=== PATIENT | female | born 1975 | race Hispanic/Latino ===

== ENCOUNTER 2017-12-08 18:48 | Emergency (ER) | payer OTHER ==
[~2017-12-08] VITALS: Wt 90.3 kg
[~2017-12-08 18:48] MED LIST: AZITHROMYCIN250 MG PO; CYCLOBENZAPRINE10 MG PO; DEPRESSION MED; DIPHENHYDRAMINE25 M1 PO; LISINOPRIL-HCT1 EAC2 PO; NORCO 5-325 TA1 EACH PO; PEPCID20 MG PO; TRAMADOL HCL50 MG PO
[2017-12-08] MEDS ORDERED: ACETAMINOPHEN-1 EAC1 PO (22:45)
[2017-12-08] MEDS ORDERED: CRUTCH1 EACH MISC (22:46)
== END 2017-12-08 23:09 | disposition home or self-care (01) ==
LOC: ED 18:48
DX: S93.401A Sprain of unspecified ligament of right ankle, initial encounter (principal); I10 Essential (primary) hypertension; Z79.899 Other long term (current) drug therapy; W07.XXXA Fall from chair, initial encounter
CPT/HCPCS: 73590; 73610; 99283

== ENCOUNTER 2019-09-23 14:11 | Emergency (ER) | payer OTHER ==
[~2019-09-23] VITALS: Ht 170.2 cm; Wt 95.2 kg
--- OUTSIDE RECORDS SUMMARY | ~2019-09-23 | XMS | Clinical Summary ---
Demographics + + + | Address | [address] | | | [place] [address] | + + + | Home Phone | | + + + | Preferred Language | Unknown | + + + | Marital Status | | + + + | Orthodox Affiliation | 1001 | + + + | Race | Unknown | + + + | Ethnic Group | Unknown | + + + Author + + + | Author | [facility] | | | and [place] | + + + | Organization | [facility] | | | and [place] | + + + | Address | Unknown | + + + | Phone | Unavailable | + + + Support + + + + + | Name | Relationship | Address | Phone | + + + + + | Louis Lees | ECON | [address] | | | | | [address] unit | | | | | [facility] [place] | | | | | [address] | | + + + + + Care Team Providers + +------+ + | Care Machine Container Washer Name | Role | Phone | + +------+ + | Eden Borden RN | PCP | | + +------+ + Allergies No Known Allergies Medications + + + +---------+------+------+-------+ | Medication | Sig | Dispensed | Refills | Star | End | Statu | | | | | | t | Date | s | | | | | | Date | | | + + + +---------+------+------+-------+ | ranitidine | Take 150 mg by mouth | | 0 | | | Activ | | (ZANTAC) 150 mg | 2 times daily. | | | | | e | | tablet | | | | | | | + + + +---------+------+------+-------+ | esomeprazole | Take 20 mg by mouth | | 0 | | | Activ | | (NEXIUM) 20 mg | Daily. | | | | | e | | packet | | | | | | | + + + +---------+------+------+-------+ | lisinopril | Take 30 mg by mouth | | 0 | | | Activ | | (PRINIVIL,ZESTRIL) | Daily. | | | | | e | | 30 MG tablet | | | | | | | + + + +---------+------+------+-------+ | baclofen | Take 10 mg by mouth | | 0 | | | Activ | | (LIORESAL) 10 mg | 2 times daily. | | | | | e | | tablet | | | | | | | + + + +---------+------+------+-------+ | atenolol | Take 50 mg by mouth | | 0 | | | Activ | | (TENORMIN) 50 mg | Daily. 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 | + + + + + | Abdominal pain, left upper quadrant | 01/15/2016 | + + + | Nausea | 01/15/2016 | + + + | Abdominal pain, epigastric | 01/15/2016 | + + + Family History + + +------+ + | Medical History | Relation | Name | Comments | + + +------+ + | High blood pressure | Father | | | + + +------+ + | Cancer | Maternal | | | | | Grandmoth | | | | | er | | | + + +------+ + | High blood pressure | Mother | | | + + +------+ + | Diabetes | | | | + + +------+ + | Hypertension | | | | + + +------+ + + +------+--------+ + | Relation | Name | Status | Comments | + +------+--------+ + | Father | | Alive | tumor in chest | + +------+--------+ + | Maternal Grandmother | | | | + +------+--------+ + | Mother | | Alive | epilepsy | + +------+--------+ + Social History + +-------+ +--------+------+ | Tobacco Use | Types | Packs/Day | Years | Date | | | | | Used | | + +-------+ +--------+------+ | Never Smoker | | | | | + +-------+ +--------+------+ + +---+---+---+ | Smokeless Tobacco: | | | | | Never Used | | | | + +---+---+---+ + + +---------+ + | Alcohol Use | Drinks/Week | oz/Week | Comments | + + +---------+ + | No | 0 Standard drinks | 0.0 | | | | or equivalent | | | + + +---------+ + + + + | Sex Assigned at | Date Recorded | | | | + + + | Not on file | | + + + + + + + | Job Start Date | Occupation | Industry | + + + + | Not on file | Not on file | Not on file | + + + + + + + + | Travel History | Travel Start | Travel End | + + + + + + | No recent travel history available. | + + Last Filed Vital Signs + + + + + | Vital Sign | Reading | Time Taken | Comments | + + + + + | Blood Pressure | 109/58 | 02/09/2016 10:00 AM | | | | | PDT | | + + + + + | Pulse | 52 | 02/09/2016 10:00 AM | | | | | PDT | | + + + + + | Temperature | 36.4 C (97.5 F) | 02/09/2016 8:00 AM | | | | | PDT | | + + + + + | Respiratory Rate | 14 | 02/09/2016 9:37 AM | | | | | PDT | | + + + + + | Oxygen Saturation | 96% | 02/09/2016 10:00 AM | | | | | PDT | | + + + + + | Inhaled Oxygen | - | - | | | Concentration | | | | + + + + + | Weight | 90.7 kg (200 lb) | 02/09/2016 8:00 AM | | | | | PDT | | + + + + + | Height | 170.2 cm (5' 7") | 02/09/2016 8:00 AM | | | | | PDT | | + + + + + | Body Mass Index | 31.32 | 02/09/2016 8:00 AM | | | | | PDT | | + + + + + Plan of Treatment + + + + + | Health Maintenance | Due Date | Last Done | Comments | + + + + + | Vaccine: | | | | | Dtap/Tdap/Td (1 - | 5 | | | | Tdap) | | | | + + + + + | Cervical Cancer | | | | | Screening (Pap) | 6 | | | + + + + + | Vaccine: Influenza | | | | | (#1) | 9 | | | + + + + + Results Not on filefrom Last 3 Months Insurance + +--------+ +--------+ +---------+--------+ | Payer | Benefi | Subscriber | Effect | Phone | Address | Type | | | t Plan | ID | christian | | | | | | / | | Dates | | | | | | Group | | | | | | + +--------+ +--------+ +---------+--------+ | [employer] | MODA | [id number] | | [phone] | | Medica | | MEDICAID HMO | HEALTH | | 016-Pr | 1 | | id | | | MDCD | | esent | | | | | | [place]MO [place] | | | | | | + +--------+ +--------+ +---------+--------+ | [employer] | MODA | [id number] | 08/05/ | [phone] | | Medica | | MEDICAID HMO | HEALTH | | 2019-P | 1 | | id | | | MDCD | | resent | | | | | | [place]MO [place] | | | | | | + +--------+ +--------+ +---------+--------+ + +--------+ +--------+ + + | Guarantor Name | Accoun | Relation to | Date | Phone | Billing Address | | | t Type | Patient | of | | | | | | | | | | + +--------+ +--------+ + + | Lees | Person | Self | [birth year] | | [address] | | Anahi Masters | al/Vamshi | | 1975 | [phone] | [place] [address] | | Gisela | brent | | | 4 (Home) | | + +--------+ +--------+ + + | Lees | Person | Self | [birth year] | | [address] | | Anahi Masters | al/Vamshi | | 1975 | [phone] | [place] [address] | | Gisela | brent | | | 4 (Home) | | + +--------+ +--------+ + + Advance Directives + + + + + | Type | Date Recorded | Patient | Explanation | | | | Rougher Machine Operator | | + + + + + | Power of | | | | | Sports Cartoonist | | | | + + + + + | Advance | 02/09/2016 7:45 | | | | Directive | AM | | | + + + + +
--- OUTSIDE RECORDS SUMMARY | ~2019-09-23 | XMS | Encounter Summary ---
Demographics + + + | Address | [address] | | | [place] [address] | + + + | Home Phone | | + + + | Preferred Language | Unknown | + + + | Marital Status | | + + + | Mandaeism Affiliation | 1001 | + + + | Race | Unknown | + + + | Ethnic Group | Unknown | + + + Author + + + | Author | [facility] | | | and [place] | + + + | Organization | [facility] | | | and [place] [...] [address] | | | | | [place], [place] | | | | | [address] | | + + + + + Care Team Providers + +------+ + | Care Dray Driver Name | Role | Phone | + +------+ + | Eden Borden RN | PCP | | + +------+ + Reason for Referral Evaluate & Treat (Routine) +--------+ + + + + + | Status | Reason | Specialty | Diagnoses / | Referred By | Referred To | | | | | Procedures | Contact | Contact | +--------+ + + + + + | Closed | Specialty | Gastroenterol | Diagnoses | | Ruth Ann, | | | Services | ogy | | Gael, | MD Alfred | | | Required | | Gastroesopha | Krys, | [address] | | | | | geal reflux | LEAD MAN OVER ALL DIES IN PATTERN 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 [address] | [place], | | | | | disease, | [place], [place] | [place] [address] | | | | | esophagitis | [address] [place] | Phone: | | | | | presence not | [place], [place] | [phone] | | | | | specified | [address] | Fax: | | | | | Dysphagia, | Phone: | [phone] | | | | | unspecified | [phone] | | | | | | dysphagia | Fax: | | | | | | Abdominal | [phone] | | | | | | pain, left | | | | | | | upper | | | | | | | quadrant | | | | | | | Nausea | | | | | | | Procedures | | | | | | | [place] | | | | | | | ESOPHAGOGAST | | | | | | | RODUODENOSCO | | | | | | | PY TRANSORAL | | | | | | | DIAGNOSTIC | | | | | | | [place] EDG | | | | | | | TRANSORAL | | | | | | | BIOPSY | | | | | | | SINGLE/MULTI | | | | | | | PLE 01/30 | | | | | | | PENDING-MODA | | | | | | | IPA | | | | | | | RESPONSE | | | +--------+ + + + + + Reason for Visit + + + | Reason | Comments | + + + | Gastroesophageal | | | Reflux | | + + + Evaluate & Treat (Routine) +--------+--------+ + + + + | Status | Reason | Specialty | Diagnoses / | Referred By | Referred To | | | | | Procedures | Contact | Contact | +--------+--------+ + + + + | Closed | | Gastroenterol | Diagnoses | Unknown, | [facility] | | | | ogy | | Doctor | Gastroenterol | | | | | Gastro-esoph | Phone: | ogy [address] | | | | | ageal reflux | | [address] [place] | | | | | disease | Fax: | [address] [place] | | | | | without | | [place], [place] | | | | | esophagitis | | [address] | | | | | Procedures | | Phone: | | | | | OFFICE | | [phone] | | | | | VISIT | | Fax: | | | | | | | [phone] | +--------+--------+ + + + + Encounter Details +--------+---------+ + + + | Date | Type | Department | Care Team | Description | +--------+---------+ + + + | 01/08/ | Office | [facility] [place] | [facility], | Gastroesophageal | | 2015 | Visit | GASTROENTEROLOGY | FILEMON Marcano [address] | reflux disease, | | | | [address] [place] | [place], [place] [address] | esophagitis presence | | | | [address] [place], [place] | [place], [place] | not specified | | | | [address] | [phone] | (Primary Dx); | | | | [phone] | | Dysphagia, | | | | | | unspecified | | | | | | dysphagia; Abdominal | | | | | | pain, left upper | | | | | | quadrant; Nausea; | | | | | | Epigastric pain; | | | | | | Gastroesophageal | | | | | | reflux disease | | | | | | without esophagitis | +--------+---------+ + + + Social History + +-------+ +--------+------+ | [...] recent travel history available. | + + documented as of this encounter Last Filed Vital Signs + + + + + | Vital Sign | Reading | Time Taken | Comments | + + + + + | Blood Pressure | 120/70 | 01/09/2016 9:55 AM | | | | | PDT | | + + + + + | Pulse | 91 | 01/09/2016 9:55 AM | | | | | PDT | | + + + + + | Temperature | 36.6 C (97.9 F) | 01/09/2016 9:55 AM | | | | | PDT | | + + + + + | Respiratory Rate | 16 | 01/09/2016 9:55 AM | | | | | PDT | | + + + + + | Oxygen Saturation | 96% | 01/09/2016 9:55 AM | | | | | PDT | | + + + + + | Inhaled Oxygen | - | - | | | Concentration | | | | + + + + + | Weight | 90.7 kg (200 lb) | 01/09/2016 9:55 AM | | | | | PDT | | + + + + + | Height | 170.2 cm (5' 7") | 01/09/2016 9:55 AM | | | | | PDT | | + + + + + | Body Mass Index | 31.32 | 01/09/2016 9:55 AM | | | | | PDT | | + + + + + documented in this encounter Progress Notes Harriet Vincent RN - 01/09/2016 5:14 PM PDTScheduled for egd with IVCS on 02/[address] [facility] [address] Greenberg. Patient is Mongolian-speaking only.Electronically signed by HOMERO Hernandez 01/11/2016 4:45 PM PDTKrys Mayo LEAD MAN OVER ALL DIES IN PATTERN SHOP - 01/09/2016 10:41 AM PDTFormatting of th is note might be different from the original. Anahi Masters is a 40 y.o. female referred by Eden Ahumada RN for evalua tion and treatment of GERD and abdominal pain. History of present illness: Patient notes that starting 09/2015, she developed strong pain in stomach and back that bro ught her to ER. [place] shortness of breath with pain. When pain started she was having trouble with headaches. Was taking 2-3 pills of tylenol da brent. She was found to have high blood pressure. Was advised that she had an ulcer and was given antibiotics for infection in her stomach. The medication seemed to help the abdominal pain a bit. Pain continued to be intermittent. She has been on amoxicillin and clarithromycin toge ther for the past 3 weeks. Pain continues in left upper side and straight through to left side of back. Pain is worse with taking a deep breath of movement. She was told to avoid greasy or spicy foods. If she e ats this, it does seem to worsen some. Pain is there despite Nexium. Records indicate she wa s treated with amoxicillin and clarithromycin. Pain is intermittent. Describes discomfort as a mixture of burning stabbing pain. Pain come s daily. Worse with moving or touching. Complains of nausea is most of the day. Vomiting can come 1-2 times per day. Notes dysphagia. Dysphagia comes with food. Denies dysphagia with liquids. Dysphagia is wor se with tortilla, wheat bread, or dry foods. Notes that stool and urine are dark. Chin Strap Cutter phone used. No Known Allergies Past Medical History Diagnosis Date Depression HTN (hypertension) Abdominal pain GERD (gastroesophageal reflux disease) Chest pain Peptic ulcer disease Past Surgical History Procedure Laterality Date section, classic Family History Problem Relation Age of Onset Hypertension Diabetes High blood pressure Mother High blood pressure Father Cancer Maternal Grandmother History Social History Marital Status: Spouse Name: N/A Number of Children: N/A Years of Education: N/A Occupational History Not on file. Social History Main Topics Smoking status: Never Smoker Smokeless tobacco: Never Used Alcohol Use: No Drug Use: No Sexual Activity: Not on file Other Topics Concern Not on file Social History Narrative Review of systems: Constitutional:Denies any fevers, chills, or unintentional weight loss. Eyes:Denies using glaucoma eye drops. Denies dry, burning, painful eyes Respiratory:Denies shortness of breath, cough or wheezing. Gastrointestinal:Complains of heartburn. Denies constipation, diarrhea, bloody or black sto ols, hematemesis, nausea or vomiting, hemorrhoids, or dysphagia Skin: Denies rashes Neurological:Denies memory difficulties, numbness or tingling, muscle weakness, paralysis o f arms or legs, epilepsy or seizure, or frequent bothersome and headaches. ENT: Denies hearing loss, hearing aids, hearing ringing or buzzing in ears, constantly runn y nose, nasal obstruction, hayfever, dentures, or hoarseness. Cardiovascular:Denies chest pain, palpitations, or swelling to legs :Denies painful urination, urine incontinence, waking up on average more than once per ni ght to urinate, bloody urine, or impotence Musculoskeletal:Denies swollen joints, painful back, or painful joints. Psychiatric:Denies depression and anxiety Endocrine:Denies enlarged thyroid Heme/lymph:Denies anemia or enlarged lymph glands. Physical exam: General: well developed, well nourished, in no acute distress. Head: normocephalic and atraumatic Eyes: Sclera clear Mouth: MMM Lungs: Clear to auscultate bilaterally and throughout Heart: regular rate and rhythm Abdomen: Soft, non tender, non distended, bowel tones positive times 4 quadrants, negative Teodoro y's sign, negative rebound tenderness, no guarding, no hepatosplenomegaly palpated. Msk: symmetrical with no deformity, with normal posture and gait, normal strength. Extremities: no clubbing, cyanosis, edema, or deformity noted Neurologic: no focal deficits, cranial nerves II-XII grossly intact Skin: intact without lesions or rashes. Psych: alert and cooperative; normal mood and affect; normal attention span and concentration. Abstract on 01/05/2016 Component Date Value Ref Range Status Creatinine, External 12/21/2015 0.75 0.6 - 1.35 Final eGFR, External 12/21/2015 86 Final Cholesterol, Total, External 12/21/2015 170 200 mg/dl Final HDL Cholesterol, External 12/21/2015 39.8* 40 mg/dl Final Triglycerides, External 12/21/2015 173* 30 - 150 Final WBC, External 12/21/2015 5.4 4.5 - 11 Final HGB, External 12/21/2015 12.6 12 - 16 Final HCT, External 12/21/2015 36.5 35 - 45 Final PLT, External 12/21/2015 272 140 - 440 Final Neutrophils %, External 12/21/2015 60.6 39 - 80 Final Lymphocytes %, External 12/21/2015 27.6 24 - 44 Final Monocytes %, External 12/21/2015 7.1 0 - 12 Final Eosinophils %, External 12/21/2015 4.4 0 - 6 Final RBC, External 12/21/2015 4.03 3.8 - 5.1 Final MCV, External 12/21/2015 91 81 - 99 Final RDW, External 12/21/2015 13.7 10.5 - 15 Final Sodium, External 12/21/2015 138 132 - 143 Final Potassium, External 12/21/2015 3.6 3.6 - 5.1 Final Chloride, External 12/21/2015 103 95 - 112 Final Carbon Dioxide, External 12/21/2015 24 19 - 31 Final Calcium, External 12/21/2015 9.4 8.4 - 10.2 Final Protein, Total, External 12/21/2015 6.9 6 - 8 Final Albumin, External 12/21/2015 4.6 3.5 - 5 Final Bilirubin, Total, External 12/21/2015 0.5 0 - 1.2 Final ALP, External 12/21/2015 54 30 - 128 Final AST, External 12/21/2015 17 13 - 39 Final ALT, External 12/21/2015 21 7 - 52 Final Amylase, Serum, External 12/21/2015 49 29 - 103 Final Troponin T, External 12/21/2015 0.010 0.01 Final CKMB, Total, External 12/21/2015 negative Corrected Glucose, External 12/21/2015 91 70 - 100 Final BUN, External 12/21/2015 14 6 - 23 Final VLDL Cholesterol Erasmo 12/21/2015 35 Final Chol/HDL Ratio 12/21/2015 4.3 Final Non HDL Chol. (LDL+VLDL) 12/21/2015 130 Final ANION GAP 12/21/2015 15 Final Bun/Creatinine 12/21/2015 18.7 Final Globulin 12/21/2015 2.3 Final Albumin/Globulin Ratio 12/21/2015 2.0 Final Myoglobin 12/21/2015 24.41* 25 - 58 ng/mL Final Relative Index 12/21/2015 1.7 Final D-DIMER, QUANTITATIVE 12/21/2015 176.0 230.0 FEU ng/mL Final CK-MB 12/21/2015 1.7 Final H PYLORI IGG 12/21/2015 Positive Final MCH 12/21/2015 31.0 26.0 - 33.0 pg Final MCHC 12/21/2015 35.0 30.0 - 36.0 % Final BASOPHILS % 12/21/2015 0.3 1.0 % Final Assessment: 1. Gastroesophageal reflux disease, esophagitis presence not specified Ambulatory referral to Gastroenterology ([facility]) 2. Dysphagia, unspecified dysphagia Ambulatory referral to Gastroenterology ([facility]) 3. Abdominal pain, left upper quadrant Ambulatory referral to Gastroenterology ([facility]) 4. Nausea Ambulatory referral to Gastroenterology ([facility]) 5. Epigastric pain 6. Gastroesophageal reflux disease without esophagitis Plan: Patient to have EGD for further evaluation.The procedural techniques, risks, indications, a nd alternatives were discussed. Among the risks, are perforation, bleeding, infection, michael rgic/adverse reactions to medications, and cardiovascular complications. Each of these coul d result in hospitalization, additional procedures (including surgery), or other life threat ening complications. Patient verbalized understanding.Patient to call with any questions or concerns prior to procedure. Continue with Nexium daily. She is to stop antibiotics. She has been taking amoxicillin and clarithromycin for 3 weeks now without relief. Will follow up with results. Patient is to call with any question or concerns. Any fevers, chills, chest pain, SOB or other serious symptoms patient is to call the office or go to ER . Cc: Eden Ahumada RN This note was dictated using voice recognition software. Please contact me if there are an y questions regarding its content. documented in t his encounter Plan of Treatment + + +--------+ + + | Name | Type | Priori | Associated Diagnoses | Order Schedule | | | | ty | | | + + +--------+ + + | Ambulatory referral | Outpatient | Routin | Gastroesophageal | Expected: 02/09/2016 | | to Gastroenterology | Referral | e | reflux disease, | (Approximate), | | ([facility]) | | | esophagitis presence | Expires: 01/08/2017 | | | | | not specified | | | | | | Dysphagia Abdominal | | | | | | pain, left upper | | | | | | quadrant Nausea | | + + +--------+ + + documented as of this encounter Visit Diagnoses + + | Diagnosis | + + | Gastroesophageal reflux disease, esophagitis presence not specified - Primary | + + | Dysphagia, unspecified dysphagia | + + | Abdominal pain, left upper quadrant | + + | Nausea Nausea alone | + + | Epigastric pain Abdominal pain, epigastric | + + | Gastroesophageal reflux disease without esophagitis Esophageal reflux | + + documented in this encounter
--- OUTSIDE RECORDS SUMMARY | ~2019-09-23 | XMS | Encounter Summary ---
Demographics + + + | Address | [address] | | | [place] [address] | + + + | Home Phone | | + + + | Preferred Language | Unknown | + + + | Marital Status | | + + + | Orthodoxy Affiliation | 1001 | + + + | Race | Unknown | + + + | Ethnic Group | Unknown | + + + Author + + + | Author | [facility] | | | and [place] | + + + | Organization | [facility] | | | and [place] [...] [place], [place] | | | | | [address] | | + + + + + Care Team Providers + +------+ + | Care Air Transport Professionals Name | Role | Phone | + [...] | | | | geal reflux | GANG DRILL PRESS OPERATOR [address] | [place], | | | | | disease, | [place], [place] | [place] [address] | | | | | esophagitis | [address] [place] | Phone: | | | | | presence not | [place], [place] | [phone] | | | | | specified | [address] | Fax: | | | | | Dysphagia, | Phone: | [phone] | | | | | unspecified | [phone] | | | | | | dysphagia | Fax: | | | | | | Abdominal | [phone] | | | | | | pain, left | | | | | | | upper | | | | | | | quadrant | | | | | | | Nausea | | | | | | | Procedures | | | | | | | [place] | | | | | | | ESOPHAGOGAST | | | | | | | RODUODENOSCO | | | | | | | PY TRANSORAL | | | | | | | DIAGNOSTIC | | | | | | | [place] EDG | | | | | | [...] | | | | esophagitis | | [address] | | | | | Procedures | | Phone: | | | | | OFFICE | | [phone] | | | | | VISIT | | Fax: | | | | | | | [phone] | +--------+--------+ + + + + Encounter Details +--------+---------+ + + + | Date | Type | Department | Care Team | Description | +--------+---------+ + + + | 01/08/ | Office | [facility] [place] | [facility] | Gastroesophageal | | 2015 | Visit | GASTROENTEROLOGY | FILEMON Marcano [address] | reflux disease, | | | | [address] [place] | [place], [place] [address] | esophagitis presence | | | | [address] [place], [place] | [place], [place] | not specified | | | | [address] | [id number] | (Primary Dx); | | | | [phone] | | Dysphagia, | | | | [...] with IVCS on 02/[address] [facility] [address] Greenberg. Patient is English-speaking only.Electronically signed by HOMERO Hernandez 01/11/2016 4:45 PM PDTKrys Mayo GANG DRILL PRESS OPERATOR - 01/09/2016 10:41 AM PDTFormatting of th is note might be different from the original. Anahi Masters is a 40 y.o. female referred by Eden Ahumada RN for evalua tion and treatment of GERD and abdominal pain. History of present illness: Patient notes that starting 09/2015, she developed strong pain in stomach and back that bro ught her to ER. [place] shortness of breath with pain. When pain [...] Notes that stool and urine are dark. Gallery Manager phone used. No Known Allergies Past Medical [...] presence not specified Ambulatory referral to Gastroenterology ([facility]) 2. Dysphagia, unspecified dysphagia Ambulatory referral to Gastroenterology ([facility]) 3. Abdominal pain, left upper quadrant Ambulatory referral to Gastroenterology ([facility]) 4. Nausea Ambulatory referral to Gastroenterology ([facility]) 5. Epigastric pain 6. Gastroesophageal [...]
--- OUTSIDE RECORDS SUMMARY | ~2019-09-23 | XMS | Encounter Summary ---
Demographics + + + | Address | [address] | | | [place] [address] | + + + | Home Phone | | + + + | Preferred Language | Unknown | + + + | Marital Status | | + + + | Yarsanism Affiliation | 1001 | + + + | Race | Unknown | + + + | Ethnic Group | Unknown | + + + Author + + + | Author | [facility] | | | and [place] | + + + | Organization | [facility] | | | and [place] | [...] [address] | | | | | [facility] [place] | | | | | [address] | | + + + + + Care Team Providers + +------+ + | Care Application Developer Name | Role | Phone | + +------+ + | Eden Borden RN | PCP | | + +------+ + Reason for Visit +---------+ + | Reason | Comments | +---------+ + | Results | | +---------+ + Encounter Details +--------+ + + + + | Date | Type | Department | Care Team | Description | +--------+ + + + + | 05/05/ | Telephone | [facility] | Alfred Greenberg MD | Results | | 2016 | | GASTROENTEROLOGY | [address] [facility] | | | | | [address] [facility] | [place], [place] | | | | | [address] [place] | [address] | | | | | [address] | [phone] | | | | | [phone] | | | +--------+ + + + + Social History + +-------+ [...] + + documented as of this encounter Plan of Treatment Not on filedocumented as of this encounter Visit Diagnoses Not on filedocumented in this encounter"
--- OUTSIDE RECORDS SUMMARY | ~2019-09-23 | XMS | Encounter Summary ---
Demographics + + + | Address | [address] | | | [place] [address] | + + + | Home Phone | | + + + | Preferred Language | Unknown | + + + | Marital Status | | + + + | Rastafarian Affiliation | 1001 | + + + | Race | Unknown | + + + | Ethnic Group | Unknown | + + + Author + + + | Author | [facility] | | | and [place] | + + + | Organization | [facility] | | | and [place] [...] [address] | | | | | [facility] [place] | | | | | [address] | | + + + + + Care Team Providers + +------+ + | Care Care Taker Name | Role | Phone | + +------+ + | Eden Borden RN | PCP | | + +------+ + Encounter Details +--------+ + + + + | Date | Type | Department | Care Team | Description | +--------+ + + + + | 01/04/ | Abstract | [facility] | Gael, | | | 2015 | | GASTROENTEROLOGY | [address] | | | | | [address] [place] | [place] | | | | | [address] [place], [place] | [place], [place] | | | | | [address] | [address] | | | | | [phone] | | | +--------+ + + + + Social History + +-------+ +--------+------+ | Tobacco Use | Types | Packs/Day | Years | Date | | | | | Used | | + +-------+ +--------+------+ | Never Smoker | | | | | + +-------+ +--------+------+ + + +---------+ + | Alcohol Use [...] Not on filedocumented as of this encounter Procedures + +--------+ + + + | Procedure Name | Priori | Date/Time | Associated Diagnosis | Comments | | | ty | | | | + +--------+ + + + | EXTERNAL LAB: FREDDY | Routin | 12/21/2015 | | Results for this | | | e | | | procedure are in the | | | | | | results section. | + +--------+ + + + | EXTERNAL LAB: | Routin | 12/21/2015 | | Results for this | | GLUCOSE | e | | | procedure are in the | | | | | | results section. | + +--------+ + + + | EXTERNAL LAB: CKMB | Routin | 12/21/2015 | | Results for this | | | e | | | procedure are in the | | | | | | results section. | + +--------+ + + + | EXTERNAL LAB: | Routin | 12/21/2015 | | Results for this | | TROPONIN T | e | | | procedure are in the | | | | | | results section. | + +--------+ + + + | EXTERNAL LAB: | Routin | 12/21/2015 | | Results for this | | AMYLASE, SERUM | e | | | procedure are in the | | | | | | results section. | + +--------+ + + + | EXTERNAL LAB: ALT | Routin | 12/21/2015 | | Results for this | | | e | | | procedure are in the | | | | | | results section. | + +--------+ + + + | EXTERNAL LAB: AST | Routin | 12/21/2015 | | Results for this | | | e | | | procedure are in the | | | | | | results section. | + +--------+ + + + | EXTERNAL LAB: | Routin | 12/21/2015 | | Results for this | | ALKALINE PHOSPHATASE | e | | | procedure are in the | | | | | | results section. | + +--------+ + + + | EXTERNAL LAB: | Routin | 12/21/2015 | | Results for this | | BILIRUBIN, TOTAL | e | | | procedure are in the | | | | | | results section. | + +--------+ + + + | EXTERNAL LAB: | Routin | 12/21/2015 | | Results for this | | ALBUMIN | e | | | procedure are in the | | | | | | results section. | + +--------+ + + + | EXTERNAL LAB: | Routin | 12/21/2015 | | Results for this | | PROTEIN, TOTAL | e | | | procedure are in the | | | | | | results section. | + +--------+ + + + | EXTERNAL LAB: | Routin | 12/21/2015 | | Results for this | | CALCIUM | e | | | procedure are in the | | | | | | results section. | + +--------+ + + + | EXTERNAL LAB: CARBON | Routin | 12/21/2015 | | Results for this | | DIOXIDE | e | | | procedure are in the | | | | | | results section. | + +--------+ + + + | EXTERNAL LAB: | Routin | 12/21/2015 | | Results for this | | CHLORIDE | e | | | procedure are in the | | | | | | results section. | + +--------+ + + + | EXTERNAL LAB: | Routin | 12/21/2015 | | Results for this | | POTASSIUM | e | | | procedure are in the | | | | | | results section. | + +--------+ + + + | EXTERNAL LAB: SODIUM | Routin | 12/21/2015 | | Results for this | | | e | | | procedure are in the | | | | | | results section. | + +--------+ + + + | EXTERNAL LAB: CBC | Routin | 12/21/2015 | | Results for this | | | e | | | procedure are in the | | | | | | results section. | + +--------+ + + + | EXTERNAL LAB: | Routin | 12/21/2015 | | Results for this | | TRIGLYCERIDES | e | | | procedure are in the | | | | | | results section. | + +--------+ + + + | EXTERNAL LAB: | Routin | 12/21/2015 | | Results for this | | CHOLESTEROL, HDL | e | | | procedure are in the | | | | | | results section. | + +--------+ + + + | EXTERNAL LAB: | Routin | 12/21/2015 | | Results for this | | CHOLESTEROL, TOTAL | e | | | procedure are in the | | | | | | results section. | + +--------+ + + + | EXTERNAL LAB: EGFR | Routin | 12/21/2015 | | Results for this | | | e | | | procedure are in the | | | | | | results section. | + +--------+ + + + | EXTERNAL LAB: | Routin | 12/21/2015 | | Results for this | | CREATININE | e | | | procedure are in the | | | | | | results section. | + +--------+ + + + | H. PYLORI ANTIBODY | Routin | 12/21/2015 | | Results for this | | SCREEN | e | | | procedure are in the | | | | | | results section. | + +--------+ + + + | RULE OUT MYOCARDIAL | Routin | 12/21/2015 | | Results for this | | INFARCTION | e | | | procedure are in the | | | | | | results section. | + +--------+ + + + | LIPID PANEL | Routin | 12/21/2015 | | Results for this | | | e | | | procedure are in the | | | | | | results section. | + +--------+ + + + | CBC WITH | Routin | 12/21/2015 | | Results for this | | DIFFERENTIAL | e | | | procedure are in the | | | | | | results section. | + +--------+ + + + | COMPREHENSIVE | Routin | 12/21/2015 | | Results for this | | METABOLIC PANEL | e | | | procedure are in the | | | | | | results section. | + +--------+ + + + documented in this encounter Results CBC with Differential (12/21/2015) + +-------+ + + + | Component | Value | Ref Range | Performed | Pathologist | | | | | At | Signature | + +-------+ + + + | MCH | 31.0 | 26.0 - 33.0 pg | | | + +-------+ + + + | MCHC | 35.0 | 30.0 - 36.0 % | | | + +-------+ + + + | % Basophils | 0.3 | 1.0 % | | | + +-------+ + + + + + | Specimen | + + | Blood specimen | | (specimen) | + + H. pylori Antibody Screen (12/21/2015) + + + + + + | Component | Value | Ref Range | Performed | Pathologist | | | | | At | Signature | + + + + + + | H PYLORI | Positive | | [facility] | | | [facility] | | | [facility] | | | | | | [facility] | | | | | | [facility] - | | | | | | LABORATORY | | + + + + + + + + | Specimen | + + | Blood specimen | | (specimen) | + + + + + + + | Performing | Address | City/State/[facility] | Phone Number | | Organization | | | | + + + + + | [facility] | [address] | [place] | [phone] | | [facility] | | [address] | | | - LABORATORY | | | | + + + + + Rule Out Myocardial (12/21/2015) + + + + + + | Component | Value | Ref Range | Performed | Pathologist | | | | | At | Signature | + + + + + + | Myoglobin | 24.41 (A) | 25 - 58 ng/mL | [facility] | | | | | | [facility] | | | | | | [facility]ICAL | | | | | | CENTER - | | | | | | LABORATORY | | + + + + + + | CK Index | 1.7 | | [facility] | | | | | | [facility] | | | | | | MEDICAL | | | | | | CENTER - | | | | | | LABORATORY | | + + + + + + | D-DIMER, | 176.0 | 230.0 FEU ng/mL | [facility] | | | [facility] | | | [facility] | | | E | | | MEDICAL | | | | | | CENTER - | | | | | | LABORATORY | | + + + + + + | CK-MB | 1.7 | ng/mL | [facility] | | | [facility] | [facility] | | | | | | [facility] | | | | | | C[facility] - | | | | | | LABORATORY | | + + + + + + + + | Specimen | + + | | + + + + + + + | Performing | Address | City/State/Zipcode | Phone Number | | Organization | | | | + + + + + | [facility] | [address] | [place] | [phone] | | [facility] | | [address] | | | - LABORATORY | | | | + + + + + Comprehensive Metabolic Panel (12/21/2015) + +-------+ + + + | Component | Value | Ref Range | Performed | Pathologist | | | | | At | Signature | + +-------+ + + + | Anion Gap | 15 | mmol/L | [facility] | | | | | | [facility] | | | | | | MEDICAL | | | | | | CENTER - | | | | | | LABORATORY | | + +-------+ + + + | Bun/Creatin | 18.7 | | [facility] | | | ine | | | [facility] | | | | | | MEDICAL | | | | | | CENTER - | | | | | | LABORATORY | | + +-------+ + + + | Globulin | 2.3 | | [facility] | | | | | | [facility] | | | | | | MEDICAL | | | | | | CENTER - | | | | | | LABORATORY | | + +-------+ + + + | Albumin/Ansley | 2.0 | | [facility] | | | bulin Ratio | | | [facility] | | | | | | MEDICAL | | | | | | CENTER - | | | | | | LABORATORY | | + +-------+ + + + + + | Specimen | + + | Blood specimen | | (specimen) | + + + + + + + | Performing | Address | City/State/Zipcode | Phone Number | | Organization | | | | + + + + + | [facility] | [address] | [place] | [phone] | | [facility] | | [address] | | | - LABORATORY | | | | + + + + + Lipid Panel (12/21/2015) + +-------+ + + + | Component | Value | Ref Range | Performed | Pathologist | | | | | At | Signature | + +-------+ + + + | VLDL | | | | | | Cholesterol | | | | | | Erasmo | | | | | + +-------+ + + + | Chol/HDL | | | | | | Ratio | | | | | + +-------+ + + + | VLDL | 35 | | | | | Cholesterol | | | | | | Erasmo | | | | | + +-------+ + + + | Chol/HDL | 4.3 | | | | | Ratio | | | | | + +-------+ + + + | Non HDL | 130 | | | | | Chol. | | | | | | (LDL+VLDL) | | | | | + +-------+ + + + + + | Specimen | + + | Blood specimen | | (specimen) | + + External Lab: FREDDY (12/21/2015) + +-------+ + + + | Component | Value | Ref Range | Performed | Pathologist | | | | | At | Signature | + +-------+ + + + | BUN, | 14 | 6 - 23 | EXTERNAL | | | External | | | LAB | | + +-------+ + + + + + | Specimen | + + | | + + + + | Resulting Agency Comment | + + | [facility] | + + + +---------+ + + | Performing | Address | City/State/Zipcode | Phone Number | | Organization | | | | + +---------+ + + | EXTERNAL LAB | | | | + +---------+ + + External Lab: Glucose (12/21/2015) + +-------+ + + + | Component | Value | Ref Range | Performed | Pathologist | | | | | At | Signature | + +-------+ + + + | Glucose, | 91 | 70 - 100 | EXTERNAL | | | External | | | LAB | | + +-------+ + + + + + | Specimen | + + | | + + + + | Resulting Agency Comment | + + | [facility] | + + + +---------+ + + | Performing | Address | City/State/Zipcode | Phone Number | | Organization | | | | + +---------+ + + | EXTERNAL LAB | | | | + +---------+ + + External Lab: CKMB (12/21/2015) + + + + + + | Component | Value | Ref Range | Performed | Pathologist | | | | | At | Signature | + + + + + + | CKMB, | negative | | EXTERNAL | | | Total, | | | LAB | | | External | | | | | + + + + + + + + | Specimen | + + | | + + + + | Resulting Agency Comment | + + | [facility] | + + + +---------+ + + | Performing | Address | City/State/Zipcode | Phone Number | | Organization | | | | + +---------+ + + | EXTERNAL LAB | | | | + +---------+ + + External Lab: Troponin T (12/21/2015) + +-------+ + + + | Component | Value | Ref Range | Performed | Pathologist | | | | | At | Signature | + +-------+ + + + | Troponin T, | 0.010 | 0.01 | EXTERNAL | | | External | | | LAB | | + +-------+ + + + + + | Specimen | + + | | + + + + | Resulting Agency Comment | + + | [facility] | + + + +---------+ + + | Performing | Address | City/State/Zipcode | Phone Number | | Organization | | | | + +---------+ + + | EXTERNAL LAB | | | | + +---------+ + + External Lab: Amylase, Serum (12/21/2015) + +-------+ + + + | Component | Value | Ref Range | Performed | Pathologist | | | | | At | Signature | + +-------+ + + + | Amylase, | 49 | 29 - 103 | EXTERNAL | | | Serum, | | | LAB | | | External | | | | | + +-------+ + + + + + | Specimen | + + | | + + + + | Resulting Agency Comment | + + | [facility] | + + + +---------+ + + | Performing | Address | City/State/Zipcode | Phone Number | | Organization | | | | + +---------+ + + | EXTERNAL LAB | | | | + +---------+ + + External Lab: ALT (12/21/2015) + +-------+ + + + | Component | Value | Ref Range | Performed | Pathologist | | | | | At | Signature | + +-------+ + + + | ALT, | 21 | 7 - 52 | EXTERNAL | | | External | | | LAB | | + +-------+ + + + + + | Specimen | + + | | + + + + | Resulting Agency Comment | + + | [facility] | + + + +---------+ + + | Performing | Address | City/State/Zipcode | Phone Number | | Organization | | | | + +---------+ + + | EXTERNAL LAB | | | | + +---------+ + + External Lab: AST (12/21/2015) + +-------+ + + + | Component | Value | Ref Range | Performed | Pathologist | | | | | At | Signature | + +-------+ + + + | AST, | 17 | 13 - 39 | EXTERNAL | | | External | | | LAB | | + +-------+ + + + + + | Specimen | + + | | + + + + | Resulting Agency Comment | + + | [facility] | + + + +---------+ + + | Performing | Address | City/State/Zipcode | Phone Number | | Organization | | | | + +---------+ + + | EXTERNAL LAB | | | | + +---------+ + + External Lab: Alkaline Phosphatase (12/21/2015) + +-------+ + + + | Component | Value | Ref Range | Performed | Pathologist | | | | | At | Signature | + +-------+ + + + | ALP, | 54 | 30 - 128 | EXTERNAL | | | External | | | LAB | | + +-------+ + + + + + | Specimen | + + | | + + + + | Resulting Agency Comment | + + | [facility] | + + + +---------+ + + | Performing | Address | City/State/Zipcode | Phone Number | | Organization | | | | + +---------+ + + | EXTERNAL LAB | | | | + +---------+ + + External Lab: Bilirubin, Total (12/21/2015) + +-------+ + + + | Component | Value | Ref Range | Performed | Pathologist | | | | | At | Signature | + +-------+ + + + | Bilirubin, | 0.5 | 0 - 1.2 | EXTERNAL | | | Total, | | | LAB | | | External | | | | | + +-------+ + + + + + | Specimen | + + | | + + + + | Resulting Agency Comment | + + | [facility] | + + + +---------+ + + | Performing | Address | City/State/Zipcode | Phone Number | | Organization | | | | + +---------+ + + | EXTERNAL LAB | | | | + +---------+ + + External Lab: Albumin (12/21/2015) + +-------+ + + + | Component | Value | Ref Range | Performed | Pathologist | | | | | At | Signature | + +-------+ + + + | Albumin, | 4.6 | 3.5 - 5 | EXTERNAL | | | External | | | LAB | | + +-------+ + + + + + | Specimen | + + | | + + + + | Resulting Agency Comment | + + | [facility] | + + + +---------+ + + | Performing | Address | City/State/Zipcode | Phone Number | | Organization | | | | + +---------+ + + | EXTERNAL LAB | | | | + +---------+ + + External Lab: Protein, Total (12/21/2015) + +-------+ + + + | Component | Value | Ref Range | Performed | Pathologist | | | | | At | Signature | + +-------+ + + + | Protein, | 6.9 | 6 - 8 | EXTERNAL | | | Total, | | | LAB | | | External | | | | | + +-------+ + + + + + | Specimen | + + | | + + + + | Resulting Agency Comment | + + | [facility] | + + + +---------+ + + | Performing | Address | City/State/Zipcode | Phone Number | | Organization | | | | + +---------+ + + | EXTERNAL LAB | | | | + +---------+ + + External Lab: Calcium (12/21/2015) + +-------+ + + + | Component | Value | Ref Range | Performed | Pathologist | | | | | At | Signature | + +-------+ + + + | Calcium, | 9.4 | 8.4 - 10.2 | EXTERNAL | | | External | | | LAB | | + +-------+ + + + + + | Specimen | + + | | + + + + | Resulting Agency Comment | + + | [facility] | + + + +---------+ + + | Performing | Address | City/State/Zipcode | Phone Number | | Organization | | | | + +---------+ + + | EXTERNAL LAB | | | | + +---------+ + + External Lab: Carbon Dioxide (12/21/2015) + +-------+ + + + | Component | Value | Ref Range | Performed | Pathologist | | | | | At | Signature | + +-------+ + + + | Carbon | 24 | 19 - 31 | EXTERNAL | | | Dioxide, | | | LAB | | | External | | | | | + +-------+ + + + + + | Specimen | + + | | + + + + | Resulting Agency Comment | + + | [facility] | + + + +---------+ + + | Performing | Address | City/State/Zipcode | Phone Number | | Organization | | | | + +---------+ + + | EXTERNAL LAB | | | | + +---------+ + + External Lab: Chloride (12/21/2015) + +-------+ + + + | Component | Value | Ref Range | Performed | Pathologist | | | | | At | Signature | + +-------+ + + + | Chloride, | 103 | 95 - 112 | EXTERNAL | | | External | | | LAB | | + +-------+ + + + + + | Specimen | + + | | + + + + | Resulting Agency Comment | + + | [facility] | + + + +---------+ + + | Performing | Address | City/State/Zipcode | Phone Number | | Organization | | | | + +---------+ + + | EXTERNAL LAB | | | | + +---------+ + + External Lab: Potassium (12/21/2015) + +-------+ + + + | Component | Value | Ref Range | Performed | Pathologist | | | | | At | Signature | + +-------+ + + + | Potassium, | 3.6 | 3.6 - 5.1 | EXTERNAL | | | External | | | LAB | | + +-------+ + + + + + | Specimen | + + | | + + + + | Resulting Agency Comment | + + | [facility] | + + + +---------+ + + | Performing | Address | City/State/Zipcode | Phone Number | | Organization | | | | + +---------+ + + | EXTERNAL LAB | | | | + +---------+ + + External Lab: Sodium (12/21/2015) + +-------+ + + + | Component | Value | Ref Range | Performed | Pathologist | | | | | At | Signature | + +-------+ + + + | Sodium, | 138 | 132 - 143 | EXTERNAL | | | External | | | LAB | | + +-------+ + + + + + | Specimen | + + | | + + + + | Resulting Agency Comment | + + | [facility] | + + + +---------+ + + | Performing | Address | City/State/Zipcode | Phone Number | | Organization | | | | + +---------+ + + | EXTERNAL LAB | | | | + +---------+ + + External Lab: CBC (12/21/2015) + +-------+ + + + | Component | Value | Ref Range | Performed | Pathologist | | | | | At | Signature | + +-------+ + + + | WBC, | 5.4 | 4.5 - 11 | EXTERNAL | | | External | | | LAB | | + +-------+ + + + | HGB, | 12.6 | 12 - 16 | EXTERNAL | | | External | | | LAB | | + +-------+ + + + | HCT, | 36.5 | 35 - 45 | EXTERNAL | | | External | | | LAB | | + +-------+ + + + | PLT, | 272 | 140 - 440 | EXTERNAL | | | External | | | LAB | | + +-------+ + + + | Neutrophils | 60.6 | 39 - 80 | EXTERNAL | | | %, | | | LAB | | | External | | | | | + +-------+ + + + | Lymphocytes | 27.6 | 24 - 44 | EXTERNAL | | | %, | | | LAB | | | External | | | | | + +-------+ + + + | Monocytes | 7.1 | 0 - 12 | EXTERNAL | | | %, External | | | LAB | | + +-------+ + + + | Eosinophils | 4.4 | 0 - 6 | EXTERNAL | | | %, | | | LAB | | | External | | | | | + +-------+ + + + | RBC, | 4.03 | 3.8 - 5.1 | EXTERNAL | | | External | | | LAB | | + +-------+ + + + | MCV, | 91 | 81 - 99 | EXTERNAL | | | External | | | LAB | | + +-------+ + + + | RDW, | 13.7 | 10.5 - 15 | EXTERNAL | | | External | | | LAB | | + +-------+ + + + + + | Specimen | + + | | + + + + | Resulting Agency Comment | + + | [facility] | + + + +---------+ + + | Performing | Address | City/State/Zipcode | Phone Number | | Organization | | | | + +---------+ + + | EXTERNAL LAB | | | | + +---------+ + + External Lab: Triglycerides (12/21/2015) + +---------+ + + + | Component | Value | Ref Range | Performed | Pathologist | | | | | At | Signature | + +---------+ + + + | Triglycerid | 173 (A) | 30 - 150 | EXTERNAL | | | es, | | | LAB | | | External | | | | | + +---------+ + + + + + | Specimen | + + | Blood specimen | | (specimen) | + + + + | Resulting Agency Comment | + + | [facility] | + + + +---------+ + + | Performing | Address | City/State/Zipcode | Phone Number | | Organization | | | | + +---------+ + + | EXTERNAL LAB | | | | + +---------+ + + External Lab: Cholesterol, HDL (12/21/2015) + + + + + + | Component | Value | Ref Range | Performed | Pathologist | | | | | At | Signature | + + + + + + | HDL | 39.8 (A) | 40 mg/dl | EXTERNAL | | | Cholesterol | | | LAB | | | , External | | | | | + + + + + + + + | Specimen | + + | Blood specimen | | (specimen) | + + + + | Resulting Agency Comment | + + | [facility] | + + + +---------+ + + | Performing | Address | City/State/Zipcode | Phone Number | | Organization | | | | + +---------+ + + | EXTERNAL LAB | | | | + +---------+ + + External Lab: Cholesterol, Total (12/21/2015) + +-------+ + + + | Component | Value | Ref Range | Performed | Pathologist | | | | | At | Signature | + +-------+ + + + | Cholesterol | 170 | 200 mg/dl | EXTERNAL | | | , Total, | | | LAB | | | External | | | | | + +-------+ + + + + + | Specimen | + + | Blood specimen | | (specimen) | + + + + | Resulting Agency Comment | + + | [facility] | + + + +---------+ + + | Performing | Address | City/State/Zipcode | Phone Number | | Organization | | | | + +---------+ + + | EXTERNAL LAB | | | | + +---------+ + + External Lab: eGFR (12/21/2015) + +-------+ + + + | Component | Value | Ref Range | Performed | Pathologist | | | | | At | Signature | + +-------+ + + + | eGFR, | 86 | | EXTERNAL | | | External | | | LAB | | + +-------+ + + + + + | Specimen | + + | Blood specimen | | (specimen) | + + + + | Resulting Agency Comment | + + | [facility] | + + + +---------+ + + | Performing | Address | City/State/Zipcode | Phone Number | | Organization | | | | + +---------+ + + | EXTERNAL LAB | | | | + +---------+ + + External Lab: Creatinine (12/21/2015) + +-------+ + + + | Component | Value | Ref Range | Performed | Pathologist | | | | | At | Signature | + +-------+ + + + | Creatinine, | 0.75 | 0.6 - 1.35 | EXTERNAL | | | External | | | LAB | | + +-------+ + + + + + | Specimen | + + | Blood specimen | | (specimen) | + + + + | Resulting Agency Comment | + + | [facility] | + + + +---------+ + + | Performing | Address | City/State/Zipcode | Phone Number | | Organization | | | | + +---------+ + + | EXTERNAL LAB | | | | + +---------+ + + documented in this encounter Visit Diagnoses Not on filedocumented in this encounter"
--- OUTSIDE RECORDS SUMMARY | ~2019-09-23 | XMS | Encounter Summary ---
Demographics + + + | Address | [address] | | | [place] [address] | + + + | Home Phone [...] | Author | [facility] | | | and [place] | + + + | Organization | [facility] | | | and [place] | + + + | Address | Unknown | + + + | Phone | Unavailable | + + + Support + + + + + | Name | Relationship | Address | Phone | + + + + + | Louis Lees | ECON | [address] | | | | | [address] | | | | | [facility] [place] | | | | | [address] | | + + + + + Care Team Providers + +------+ + | Care Immigration Judge Name | Role | Phone | + +------+ + | Eden Borden RN | PCP | | + +------+ + Encounter Details +--------+ + + + + | Date | Type | Department | Care Team | Description | +--------+ + + + + | 02/08/ | Orders Only | [facility] [place] | [place], | Gastroesophageal | | 2016 | | GASTROENTEROLOGY | [address] | reflux disease, | | | | [address] [place] | [place], [address] [address] | esophagitis presence | | | | [address] [place], [place] | [place], [place] | not specified; | | | | [address] | [address] | Dysphagia; Abdominal | | | | [phone] | | pain, left upper | | | | | | quadrant; Nausea | +--------+ + + + + Social [...] filedocumented as of this encounter Visit Diagnoses + + | Diagnosis | + + | Gastroesophageal reflux disease, esophagitis presence not specified | + + | Dysphagia Dysphagia, unspecified | + + | Abdominal pain, left upper quadrant | + + | Nausea Nausea alone | + + documented in this encounter"
--- OUTSIDE RECORDS SUMMARY | ~2019-09-23 | XMS | Encounter Summary ---
Demographics + + + | Address | [address] | | | [place] [address] | + + + | Home Phone | | + + + | Preferred Language | Unknown | + + + | Marital Status | | + + + | Scientology Affiliation | 1001 | + + + | Race | Unknown | + + + | Ethnic Group | Unknown | + + + Author + + + | Author | [facility] | | | and [place] | + + + | Organization | [facility] | | | and [place] [...] [address] | | | | | [facility] [place] | | | | | [address] | | + + + + + Care Team Providers + +------+ + | Care Motor Patrol Operator Name | Role | Phone | + [...] | [address] [place] | [facility], [address] | | | | | [address] [place], [place] | [place], [place] | | | | | [address] | [address] | | | | | [phone] | | | +--------+ + + + [...] + + | Performing | Address | City/State/[facility] | Phone Number | | Organization | | | | + + + + + | [address] | [address] | [place] | [phone] | | [facility] | | [address] | | | - LABORATORY | | [...] [address] | [place] | [phone] | | [facility] | | [address] | | | - LABORATORY | | [...] [address] | [place] | [phone] | | [facility] | | [address] | | | - LABORATORY | | [...]
--- OUTSIDE RECORDS SUMMARY | ~2019-09-23 | XMS | Encounter Summary ---
Demographics + + + | Address | [address] | | | [place] [address] | + + + | Home Phone | | + + + | Preferred Language | Unknown | + + + | Marital Status | | + + + | Christianity Affiliation | 1001 | + + + | Race | Unknown | + + + | Ethnic Group | Unknown | + + + Author + + + | Author | [facility] | | | and [place] | + + + | Organization | [facility] | | | and [place] | [...] [address] | | | | | [place], [place] | | | | | [address] | | + + + + + Care Team Providers + +------+ + | Care Customer Success Associate Name | Role | Phone | + +------+ + | Eden Borden RN | PCP | | + +------+ + Reason for Visit Auth/Cert +--------+--------+ + + + + | Status | Reason | Specialty | Diagnoses / | Referred By | Referred To | | | | | Procedures | Contact | Contact | +--------+--------+ + + + + | | | | Diagnoses | | | | | | | GERD | | | | | | | without | | | | | | | esophagitis | | | | | | | Dysphagia, | | | | | | | unspecified | | | | | | | dysphagia | | | | | | | LUQ pain | | | | | | | Nausea | | | | | | | Nausea | | | | | | | [R11.0]LUQ | | | | | | | pain | | | | | | | [R10.12]Dysp | | | | | | | hagia, | | | | | | | unspecified | | | | | | | dysphagia | | | | | | | [R13.10]GERD | | | | | | | without | | | | | | | esophagitis | | | | | | | [K21.9] | | | | | | | | | | | | | | Procedures | | | | | | | IN | | | | | | | ESOPHAGOGAST | | | | | | | RODUODENOSCO | | | | | | | PY TRANSORAL | | | | | | | DIAGNOSTIC | | | | | | | EGD | | | +--------+--------+ + + + + Encounter Details +--------+---------+ + + + | Date | Type | Department | Care Team | Description | +--------+---------+ + + + | 02/08/ | Surgery | [facility] | Alfred Greenberg MD | EGD - DOES NOT SPEAK | | 2016 | | MED CTR [facility] OP | [address] | [place] | | | | [address] | [place], [place] | | | | | [place], [place] | [address] | | | | | [address] | [phone] | | | | | [phone] | | | +--------+---------+ + + + Social History [...] + + + documented in this encounter Discharge Instructions Instructions Alfred Greenberg MD - 02/08/2016Patient Discharge Instructions after an Endosco py Procedure ? You may resume your regular diet after discharge. ? Do not drive, operate machinery, make critical decisions or do activities that require co ordination or balance for 24hrs. ? Resume normal medications unless otherwise instructed. ? If biopsies were taken, the physician s office will contact you within 7-10 days. ? If a colonoscopy was performed, then you may continue to expel large amounts of air from your rectum. Please call the physician who did your procedure at [phone] if you have any questions or experience any of the following: ? Increasing abdominal pain, nausea, or vomiting. ? Chills and fever over 101F. ? New abdominal swelling or bloating. ? Signs of rectal bleeding (black or red stool). If you cannot get a hold of your physician, then call the [facility] [phone] . If necessary, report to the Emergency Department at [facility]. Quit smoking: If you smoke or have smoked within the last year, quitting is the most import ant thing you can do to protect and improve your health. documented in this encounter Medications at Time of Discharge + + + +---------+--------+ + | Medication | Sig | Dispensed | Refills | Start | End Date | | | | | | Date | | + + + +---------+--------+ + | atenolol | Take 50 mg by mouth | | 0 | | | | (TENORMIN) 50 mg | Daily. | | | | | | tablet | | | | | | + + + +---------+--------+ + | baclofen | Take 10 mg by mouth | | 0 | | | | (LIORESAL) 10 mg | 2 times daily. | | | | | | tablet | | | | | | + + + +---------+--------+ + | esomeprazole | Take 20 mg by mouth | | 0 | | | | (NEXIUM) 20 mg | Daily. | | | | | | packet | | | | | | + + + +---------+--------+ + | lisinopril | Take 30 mg by mouth | | 0 | | | | (PRINIVIL,ZESTRIL) | Daily. | | | | | | 30 MG tablet | | | | | | + + + +---------+--------+ + | ranitidine | Take 150 mg by mouth | | 0 | | | | (ZANTAC) 150 mg | 2 times daily. | | | | | | tablet | | | | | | + + + +---------+--------+ + documented as of this encounter Plan of Treatment Not on filedocumented as of this encounter Procedures + +--------+ + + + | Procedure Name | Priori | Date/Time | Associated Diagnosis | Comments | | | ty | | | | + +--------+ + + + | EGD | | 02/09/2016 | GERD without | | | | | 9:18 AM | esophagitis | | | | | PDT | Dysphagia, | | | | | | unspecified | | | | | | dysphagia LUQ pain | | | | | | Nausea | | + +--------+ + + + | EGD | Routin | 02/09/2016 | | Results for this | | | e | 9:08 AM | | procedure are in the | | | | PDT | | results section. | + +--------+ + + + | POCT TEST, | Routin | 02/09/2016 | | Results for this | | URINE, QUAL | e | 9:07 AM | | procedure are in the | | | | PDT | | results section. | + +--------+ + + + | SURGICAL PATHOLOGY | Routin | 02/09/2016 | | Results for this | | EXAM | e | 12:00 AM | | procedure are in the | | | | PDT | | results section. | + +--------+ + + + documented in this encounter Results EGD (02/09/2016 9:08 AM PDT) + + | Specimen | + + | | + + + + -+ | Narrative | Performed At | + + -+ | | [facility] | | GastroenterologyPatient Name: Anahi Leesabbi MastersProceddrew Date: | [facility] | | 02/09/2016 9:08 AMMRN: [id number] #: [id number] of : | | | 1975Admit Type: AmbulatoryAge: 40Room: [facility] 02Gender: FemaleNote | | | Status: FinalizedAttending MD: Alfred Greenberg [facility]cedure: | | | Upper GI endoscopyIndications: Abdominal pain, | | | Dysphagia, Suspected esophageal refluxProviders: Alfred | | | Thi Greenberg MD, Tabby Berkowitz RN, [facility] | | | [place] TechnicianMedicines: Midazolam 5 mg IV, | | | Fentanyl 100 micrograms IVComplications: No immediate | | | complications.Procedure: Pre-Anesthesia Assessment: - | | | Prior to the procedure, a History and Physical was performed, and | | | patient medications and allergies were reviewed. The patient is | | | competent. The risks and benefits of the procedure and the | | | sedation options and risks were discussed with the patient. All | | | questions were answered and informed consent was obtained. | | | Patient identification and proposed procedure were verified by | | | the physician, the nurse and the certified technician specialist in the | | | pre-procedure area in the endoscopy suite. Mental Status | | | Examination: alert and oriented. Airway Examination: normal | | | oropharyngeal airway and neck mobility. Respiratory Examination: clear | | | to auscultation. CV Examination: normal. Prophylactic | | | Antibiotics: The patient does not require prophylactic | | | antibiotics. Prior Anticoagulants: The patient has taken no | | | previous anticoagulant or antiplatelet agents. ASA Grade | | | Assessment: II - A patient with mild systemic disease. After | | | reviewing the risks and benefits, the patient was deemed in | | | satisfactory condition to undergo the procedure. The anesthesia | | | plan was to use moderate sedation / analgesia (conscious | | | sedation). Immediately prior to administration of medications, | | | the patient was re-assessed for adequacy to receive sedatives. | | | The heart rate, respiratory rate, oxygen saturations, blood | | | pressure, adequacy of pulmonary ventilation, and response to | | | care were monitored throughout the procedure. The physical | | | status of the patient was re-assessed after the procedure. After | | | obtaining informed consent, the endoscope was passed under direct | | | vision. Throughout the procedure, the patient's blood pressure, | | | pulse, and oxygen saturations were monitored continuously. The | | | Endoscope was introduced through the mouth, and advanced to the | | | third part of duodenum. The upper GI endoscopy was | | | accomplished without difficulty. The patient tolerated the | | | procedure well.Findings: The examined esophagus was normal. | | | Biopsies were taken with a cold forceps for histology. | | | Verification of patient identification for the specimen was | | | done by the physician and nurse using the patient's name and | | | date. Estimated blood loss was minimal. Diffuse mildly | | | erythematous mucosa without bleeding was found in the stomach. | | | Biopsies were taken with a cold forceps for histology. | | | Verification of patient identification for the specimen was done by | | | the physician and nurse using the patient's name and | | | date. Estimated blood loss was minimal. The cardia and | | | gastric fundus were normal on retroflexion. The examined | | | duodenum was normal.Impression: - Normal esophagus. Biopsied. | | | - Erythematous mucosa in the stomach. Biopsied. - Normal | | | examined duodenum.Recommendation: - Patient has a contact number | | | available for emergencies. The signs and symptoms of potential | | | delayed complications were discussed with the patient. Return | | | to normal activities tomorrow. Written discharge instructions | | | were provided to the patient. - Regular diet. - Discharge | | | patient to home. - Continue present medications. - No | | | aspirin, ibuprofen, naproxen, or other non-steroidal | | | anti-inflammatory drugs. - Await pathology results. - | | | Return to GI clinic PRN. - The findings and recommendations were | | | discussed with the patient.Alfred Greenberg MD02/09/2016 9:39 | | | AMNumber of Addenda: 0Note Initiated On: 02/09/2016 9:08 AMScope | | | Withdrawal Time: 0 hours 0 minutes 0 seconds Total Procedure Duration: | | | 0 hours 7 minutes 33 seconds Scope In: 9:28:10 AMScope Out: 9:35:43 | | | AM [facility], [address] [facility] | | | [place] [address] | | | - Discharge patient to home. | | | - Continue present medications. | | | - No aspirin, ibuprofen, naproxen, or other non-steroidal | | | anti-inflammatory drugs. | | | - Await pathology results. | | | - Return to GI clinic PRN. | | | - The findings and recommendations were discussed with the patient. | | |Alfred Greenberg MD | | |02/09/2016 9:39 AM | | |Number of Addenda: 0 | | |Note Initiated On: 02/09/2016 9:08 AM | | |Scope Withdrawal Time: 0 hours 0 minutes 0 seconds | | |Total Procedure Duration: 0 hours 7 minutes 33 seconds | | |Scope In: 9:28:10 AM | | |Scope Out: 9:35:43 AM | | | [facility], [facility] [address] [place], [place] | | | [address] | | + + -+ + +---------+ + + | Performing | Address | City/State/Zipcode | Phone Number | | Organization | | | | + +---------+ + + | [facility] [place] | | | | + +---------+ + + POCT Test, Urine, Qual (02/09/2016 9:07 AM PDT) + + + + + + | Component | Value | Ref Range | Performed | Pathologist | | | | | At | Signature | + + + + + + | | Negative | Negative | | | | Test, | | | | | | Urine, POC | | | | | + + + + + + | Specific | | 1.010, 1.015, | | | | [place], | | 1.020, 1.025 | | | | POC | | | | | + + + + + + | Internal QC | Acceptable | | | | + + + + + + | Lot Number | [id number] | | | | + + + + + + | Expiration | 2017- | | | | | Date | | | | | + + + + + + + + | Specimen | + + | Urine specimen | | (specimen) | + + Surgical Pathology Exam (02/09/2016 12:00 AM PDT) + + | Specimen | + + | | + + + + + | Narrative | Performed At | + + + | SPECIMEN(S): A GASTRIC BIOPSY SPECIMEN(S): B GE JUNCTION | [facility] | | SPECIMEN(S): C MID ESOPHAGEAL BIOPSY SPECIMEN SOURCE: A. GASTRIC | [facility] | | BIOPSY B. GE JUNCTION C. MID ESOPHAGEAL BIOPSY CLINICAL HISTORY: | | | K21.9 (gastroesophageal reflux disease without esophagitis), R13.10 | | | (dysphagia, unspecified), R10.12 (left upper quadrant pain), R11.0 | | | (nausea) MICROSCOPIC DESCRIPTION: Histologic sections of all | | | submitted blocks are examined by light microscopy. These findings, | | | together with the gross examination, support the pathologic diagnosis. | | | A. A Helicobacter pylori immunostain is performed with | | | appropriate positive and negative controls and is negative for | | | organisms. JVR:[facility] FINAL PATHOLOGIC DIAGNOSIS: A. Gastric | | | biopsy: - Benign gastric mucosa with mild to moderate chronic | | | gastritis. - A Helicobacter pylori immunostain is negative for | | | organisms. B. Gastroesophageal junction: - Benign gastric | | | mucosa with focal mild chronic inflammation. - Negative for | | | specialized intestinal metaplasia or dysplasia. C. Mid esophageal | | | biopsy: - Benign esophageal mucosa, negative for increased | | | epithelial eosinophils. JVR:[facility]:C2NR GROSS DESCRIPTION: | | | Received in three parts. A. Received in formalin labeled "Anahi | | | Nic Masters" and "gastric bx" on the requisition are three | | | pink-escobar tissue fragments measuring from 0.2-0.6 cm, submitted, all in | | | (A1). B. Received in formalin labeled "Anahi Nic Masters" and | | | "GE junction bx" on the requisition are two pink-escobar tissue fragments | | | measuring from 0.3-0.4 cm, submitted, all in (B1). C. Received in | | | formalin labeled "Anahi Nic Masters" and "Mid esophageal bx" on | | | the requisition are two ronquillo-escobar tissue fragments measuring from | | | 0.25-0.3 cm, submitted, all into (C1). ka:JVR:[facility] ADDITIONAL | | | NOTES: Immunohistochemical studies were performed on this case with | | | the appropriate negative and positive controls that react as expected. | | | This test was developed and its performance characteristics | | | determined by [employer] [facility]. It has not been cleared or | | | approved by the U.S. Food and Drug Administration. The FDA has | | | determined that such clearance or approval is not necessary. This | | | test is used for clinical purposes. It should not be regarded as | | | investigational or for research. [employer] [facility] is certified | | | under the Clinical Laboratory Improvement Amendments of 1988 (CLIA) as | | | qualified to perform high complexity clinical laboratory testing. | | | PERFORMING LABORATORY: Tissue processing and slide preparation were | | | performed by [facility], [address], [facility] | | | [place] [address] (Attendance Officer: Girish Molina M.D. CLIA#: | | | [id number]). Professional interpretation was performed by [facility] | | | [facility], [facility], [address], [place] [address] (Attendance Officer: Girish Molina M.D.; | | | CLIA#: [id number]). Diagnostician: Girish Molina MD | | | Pathologist Electronically Signed 02/13/2016 | | + + + + +---------+ + + | Performing | Address | City/State/[facility]ode | Phone Number | | Organization | | | | + +---------+ + + | [facility] | | | | | [facility] | | | | + +---------+ + + documented in this encounter Visit Diagnoses + + | Diagnosis | + + | GERD without esophagitis Esophageal reflux | + + | Dysphagia, unspecified dysphagia | + + | LUQ pain Abdominal pain, left upper quadrant | + + | Nausea Nausea alone | + + documented in this encounter Administered Medications + +--------+ +---------+------+------+ | Medication Order | MAR | Action | Dose | Rate | Site | | | Action | Date | | | | + +--------+ +---------+------+------+ | fentaNYL injection PRN, | Given | 02/09/20 | 100 mcg | | | | Starting 02/09/16 at 0922 | | 16 9:22 | | | | | | | AM PDT | | | | + +--------+ +---------+------+------+ +---+---+ | | | +---+---+ + +---------+ +---+-------+---+ | lactated ringers (LR) infusion | New Bag | 02/09/20 | | 100 | | | at 100 mL/hr, Intravenous, | | 16 9:05 | | mL/hr | | | CONTINUOUS, Starting 02/09/16 | | AM PDT | | | | | at 0900, Pre-op | | | | | | + +---------+ +---+-------+---+ +---+---+ | | | +---+---+ + +-------+ +--------+---+---+ | midazolam (VERSED) 5 mg/mL | Given | 02/09/20 | 2.5 mg | | | | injection PRN, Starting Fri | | 16 9:26 | | | | | 02/09/16 at 0924 | | AM PDT | | | | + +-------+ +--------+---+---+ +-------+ +--------+---+---+ | Given | 02/09/20 | 2.5 mg | | | | | 16 9:24 | | | | | | AM PDT | | | | +-------+ +--------+---+---+ +---+---+ | | | +---+---+ documented in this encounter
--- OUTSIDE RECORDS SUMMARY | ~2019-09-23 | XMS | Encounter Summary ---
Demographics + + + | Address | [address] | | | [place] [address] | + + + | Home Phone | | + + + | Preferred Language | Unknown | + + + | Marital Status | | + + + | Gnosticism Affiliation | 1001 | + + + | Race | Unknown | + + + | Ethnic Group | Unknown | + + + Author + + + | Author | [facility] | | | and [place] | + + + | Organization | [facility] | | | and [...] unit | | | | | [facility] [place] | | | | | [address] | | + + + + + Care Team Providers + +------+ + | Care Emergency Technician Name | Role | Phone | + [...] + + | 05/05/ | Telephone | [facility] | Alfred Greenberg MD | Results | | 2016 | | GASTROENTEROLOGY | [address] [facility] | | | | | [address] [facility] | [place], [place] | | | | | [address] | [address] | | | | | [address] | [phone] | | | | | [phone] | | | +--------+ + + + [...]
--- OUTSIDE RECORDS SUMMARY | ~2019-09-23 | XMS | Encounter Summary ---
Demographics + + + | Address | [address] | | | [place] [address] | + + + | Home Phone | | + + + | Preferred Language | Unknown | + + + | Marital Status | | + + + | Latter Day Affiliation | 1001 | + + + | Race | Unknown | + + + | Ethnic Group | Unknown | + + + Author + + + | Author | [facility] | | | and [place] | + + + | Organization | [facility] | | | and [...] [place], [place] | | | | | [address] | | + + + + + Care Team Providers + +------+ + | Care Sharepoint Engineer Name | Role | Phone | + [...] | | | | | | | [place] | | | | | | | [...] + + | 02/08/ | Surgery | [facility] | Alfred Greenberg MD | EGD - DOES NOT SPEAK | | 2016 | | MED CTR MP INTRA OP | [address] | [place] | | | | [address] | [place], [place] | | | | | [place], [place] | [address] | | | | | [address] | [phone] | | | | | [phone] | | | +--------+---------+ + + + [...] the physician who did your procedure at [phone] if you have any questions or experience any of the following: ? Increasing abdominal pain, nausea, or vomiting. ? Chills and fever over 101F. ? New abdominal swelling or bloating. ? Signs of rectal bleeding (black or red stool). If you cannot get a hold of your physician, then call the [facility] [phone] . If necessary, report to the Emergency Department at [facility]. Quit smoking: If you smoke [...] | PROVATION | | 02/09/2016 9:08 AMMRN: [id number] #: [id number] of : | | | 1975Admit Type: AmbulatoryAge: 40Room: [facility] 02Gender: FemaleNote | | | Status: FinalizedAttending MD: Alfred Greenberg [facility] | | | Upper GI endoscopyIndications: Abdominal pain, | | | Dysphagia, Suspected esophageal refluxProviders: Alfred | | | Thi Greenberg MD, Tabby Berkowitz RN, [facility] | | | Tona TechnicianMedicines: Midazolam 5 [...] | the physician, the nurse and the transportation planning technician in the | | | pre-procedure area [...] AMScope Out: 9:35:43 | | | AM [facility], [address] [facility] | | | [place] [address] | | | - Discharge patient to [...] |Scope Out: 9:35:43 AM | | | [facility], [facility] [address] [place], [place] | | | [address] | | + + -+ + +---------+ [...] | 1.010, 1.015, | | | | [place], | | 1.020, 1.025 | | | | POC | | | | | + + + + + + | Internal QC | Acceptable | | | | + + + + + + | Lot Number | [id number] | | | | + + + [...] is negative for | | | organisms. JVR:[facility] FINAL PATHOLOGIC DIAGNOSIS: A. Gastric | | [...] for increased | | | epithelial eosinophils. JVR:[facility]:C2NR GROSS DESCRIPTION: | | | Received in [...] | 0.25-0.3 cm, submitted, all into (C1). ka:JVR:[facility] ADDITIONAL | | | NOTES: Immunohistochemical studies were performed on this case with | | | the appropriate negative and positive controls that react as expected. | | | This test was developed and its performance characteristics | | | determined by [employer]. It has not been cleared or | | | approved by the U.S. Food and Drug Administration. The FDA has | | | determined that such clearance or approval is not necessary. This | | | test is used for clinical purposes. It should not be regarded as | | | investigational or for research. [employer] is certified | | | under the Clinical Laboratory Improvement Amendments of 1988 (CLIA) as | | | qualified to perform high complexity clinical laboratory testing. | | | PERFORMING LABORATORY: Tissue processing and slide preparation were | | | performed by [employer], [address], [facility] | | | [place] [address] (Flask Fitter: Girish Molina M.D. CLIA#: | | | [id number]). Professional interpretation was performed by [facility] | | | [facility], [facility], [address] | | [address], [place] [address] (Flask Fitter: Girish Molina M.D.; | | | CLIA#: [id number]). Diagnostician: Girish Molina MD | | | Pathologist Electronically Signed 02/13/2016 | | + + + + +---------+ + + | Performing | Address | City/State/[facility] Corporationcode | Phone Number | | Organization | [...]
--- OUTSIDE RECORDS SUMMARY | ~2019-09-23 | XMS | Encounter Summary ---
Demographics + + + | Address | [address] | | | [place] [address] | + + + | Home Phone | | + + + | Preferred Language | Unknown | + + + | Marital Status | | + + + | Methodist Affiliation | 1001 | + + + | Race | Unknown | + + + | Ethnic Group | Unknown | + + + Author + + + | Author | [facility] | | | and [place] | + + + | Organization | [facility] | | [...] [place], [place] | | | | | [address] | | + + + + + Care Team Providers + +------+ + | Care Sales Representative Aircraft Name | Role | Phone | + +------+ + | Eden Broden RN | PCP | | + +------+ [...] | | | | | | | [place] | | | | | | | ESOPHAGOGAST | | | | | | | RODUODENOSCO | | | | | | | PY TRANSORAL | | | | | | | DIAGNOSTIC | | | | | | | EGD | | | +--------+--------+ + + + + Encounter Details +--------+ + + + + | Date | Type | Department | Care Team | Description | +--------+ + + + + | 02/08/ | Hospital | [facility] | Alfred Greenberg MD | Abdominal pain, | | 2016 | Encounter | MED CTR MP INTRA OP | [address] | epigastric (Primary | | | | [address] | [place], [place] | Dx); Dysphagia, | | | | [place], [place] | [address] | unspecified; | | | | [address] | [phone] | Gastroesophageal | | | | [phone] | | reflux disease, | | | | | | esophagitis presence | | | | | | not specified | +--------+ + + + + Social [...] the physician who did your procedure at [phone] if you have any questions or experience any of the following: ? Increasing abdominal pain, nausea, or vomiting. ? Chills and fever over 101F. ? New abdominal swelling or bloating. ? Signs of rectal bleeding (black or red stool). If you cannot get a hold of your physician, then call the [facility] [phone] . If necessary, report to the Emergency Department at [facility]. Quit smoking: If you smoke or have [...] | [facility] | | GastroenterologyPatient Name: Anahi Scott Date: | PROVATION | | 02/09/2016 9:08 AMN: [id number] #: [id number] of : | | | 1975Admit Type: AmbulatoryAge: 40Room: [facility] 02Gender: FemaleNote | | | Status: FinalizedAttending MD: Alfred Greenberg, [facility]rocedure: | | | Upper GI endoscopyIndications: Abdominal pain, | | | Dysphagia, Suspected esophageal refluxProviders: Alfred | | | Thi Greenberg MD, Tabby Berkowitz RN, Mirtha | | | Tona, TechnicianMedicines: Midazolam 5 mg IV, | | [...] | the physician, the nurse and the low voltage technician in the | | | pre-procedure [...] AMScope Out: 9:35:43 | | | AM [facility], [address] [facility] | | | [place] [address] | | | - Discharge patient to [...] |Scope Out: 9:35:43 AM | | | [facility], [address] [place], [place] | | | [address] | | + + -+ + +---------+ [...] | 1.010, 1.015, | | | | [place], | | 1.020, 1.025 | | | | POC | | | | | + + + + + + | Internal QC | Acceptable | | | | + + + + + + | Lot Number | [id number] | | | | + + + + + + | Expiration | 2016- | | | | | Date | [...] is negative for | | | organisms. JVR:[facility] FINAL PATHOLOGIC DIAGNOSIS: A. Gastric | [...] for increased | | | epithelial eosinophils. JVR:[facility]:C2NR GROSS DESCRIPTION: | | | Received [...] | 0.25-0.3 cm, submitted, all into (C1). ka:JVR:[facility] ADDITIONAL | | | NOTES: Immunohistochemical studies were performed on this case with | | | the appropriate negative and positive controls that react as expected. | | | This test was developed and its performance characteristics | | | determined by [employer]. It has not been cleared or | | | approved by the U.S. Food and Drug Administration. The FDA has | | | determined that such clearance or approval is not necessary. This | | | test is used for clinical purposes. It should not be regarded as | | | investigational or for research. [employer] is certified | | | under the Clinical Laboratory Improvement Amendments of 1988 (CLIA) as | | | qualified to perform high complexity clinical laboratory testing. | | | PERFORMING LABORATORY: Tissue processing and slide preparation were | | | performed by [employer], [address] [place] [address], [facility] | | | [place] [address] (Adjunct Lecturer: Girish Molina M.D. CLIA#: | | | [id number]). Professional interpretation was performed by [facility] | | | [facility], [facility], [facility] | | | [place] [address] (Adjunct Lecturer: Girish Molina M.D.; | | | CLIA#: [id number]). Diagnostician: Girish Molina MD | | | [...] + | Diagnosis | + + | Abdominal pain, epigastric - Primary | + + | Dysphagia, unspecified | + + | Gastroesophageal reflux disease, esophagitis presence not specified | + + documented in this encounter Administered Medications + +--------+ +---------+------+------+ | Medication Order | MAR | Action | Dose | Rate | Site | | | Action | Date | | | | + +--------+ +---------+------+------+ | fentaNYL injection PRN, | Given | 02/09/20 | 100 mcg | | | | Starting Fri02/09/16 at 0922 | | 16 9:22 | | | | | | | AM PDT | | | | + +--------+ +---------+------+------+ +---+---+ | | | +---+---+ + +---------+ +---+-------+---+ | lactated ringers (LR) infusion | New Bag | 02/09/20 | | 100 | | | at 100 mL/hr, Intravenous, | | 16 9:05 | | mL/hr | | | CONTINUOUS, Starting Fri02/09/16 | | AM PDT | | | [...]
--- OUTSIDE RECORDS SUMMARY | ~2019-09-23 | XMS | Encounter Summary ---
Demographics + + + | Address | [address] | | | [place] [address] | + + + | Home Phone | | + + + | Preferred Language | Unknown | + + + | Marital Status | | + + + | Jainism Affiliation | 1001 | + + + | Race | Unknown | + + + | Ethnic Group | Unknown | + + + Author + + + | Author | [facility] | | | and [place] | + + + | Organization | [facility] | | | and [place] [...] [address] | | | | | [facility] [place] | | | | | [address] | | + + + + + Care Team Providers + +------+ + | Care Digital Media Strategist Name | Role | Phone | + +------+ + | Eden Borden RN | PCP | | + +------+ + Reason for Visit +---------+ + | Reason | Comments | +---------+ + | Results | egd | +---------+ + Encounter Details +--------+ + + + + | Date | Type | Department | Care Team | Description | +--------+ + + + + | 02/25/ | Telephone | [facility] | Alfred Greenberg MD | Results (egd) | | 2016 | | GASTROENTEROLOGY | [address] | | | | | [address] [facility] | [place], [place] | | | | | [address] [place], [place] | [address] | | | | | [address] | [phone] | | | | | [phone] | | | +--------+ + + + [...]
--- OUTSIDE RECORDS SUMMARY | ~2019-09-23 | XMS | Encounter Summary ---
Demographics + + + | Address | [address] | | | [place] [address] | + + + | Home Phone | | + + + | Preferred Language | Unknown | + + + | Marital Status | | + + + | Adventist Affiliation | 1001 | + + + | Race | Unknown | + + + | Ethnic Group | Unknown | + + + Author + + + | Author | [facility] | | | and [place] | + + + | Organization | [facility] | | | and [place] [...] [address] unit | | | | | [facility] [place] | | | | | [address] | | + + + + + Care Team Providers + +------+ + | Care Gui Developer Name | Role | Phone | [...] | +--------+ + + + + | 02/19/ | Telephone | [facility] | Alfred Greenberg MD | Results | | 2016 | | GASTROENTEROLOGY | [address] [facility] | | | | | [address] [facility] | [place], [place] | | | | | [address] [place] | [address] | | | | | [address] | [phone] | | | | | [phone] | | | +--------+ + + + [...]
--- OUTSIDE RECORDS SUMMARY | ~2019-09-23 | XMS | Clinical Summary ---
Demographics + + + | Address | [address] | | | [place] [address] | + + + | Home Phone | | + + + | Preferred Language | Unknown | + + + | Marital Status | | + + + | Methodist Affiliation | 1001 | + + + | Race | Unknown | + + + | Ethnic Group | Unknown | + + + Author + + + | Author | [facility] | | | and [place] | + + + | Organization | 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 | + + + + + [...] | [employer] | MODA | [id number] | | [phone] | | Medica | | MEDICAID HMO | HEALTH | | 016-Pr | 1 | | id | | | MDCD | | esent | | | | | | [place] | | | | | | + +--------+ +--------+ +---------+--------+ | [employer] | MODA | [id number] | 08/05/ | [phone] | | Medica [...] | 1975 | [id number] | [place] [address] | | Gisela | brent | | | 4 (Home) | | + +--------+ +--------+ + + | Lees | Person | Self | 09/19/ | | [address] | | Anahi Masters | al/Vamshi | | 1975 | [phone] | [place] [address] | | Gisela | brent | | | 4 (Home) | | + +--------+ +--------+ + + Advance Directives + + + + + | Type | Date Recorded | Patient | Explanation | | | | Obiee Architect | | + + + + + | Power of | | | | | Neurophysiological Technician | | | | + + + + + | Advance | 02/09/2016 7:45 | | | | Directive | AM | | | + + + + +
--- OUTSIDE RECORDS SUMMARY | ~2019-09-23 | XMS | Encounter Summary ---
Demographics + + + | Address | [address] | | | [place] [address] | + + + | Home Phone | | + + + | Preferred Language | Unknown | + + + | Marital Status | | + + + | Samaritan Affiliation | 1001 | + + + | Race | Unknown | + + + | Ethnic Group | Unknown | + + + Author + + + | Author | [facility] | | | and [place] | + + + | Organization | [facility] | | | and [place] | + + + | Address | Unknown | + + + | Phone | Unavailable | + + + Support + + + + + | Name | Relationship | Address | Phone | + + + + + | Louis Lees | ECON | [address] | | | | | [address] | | | | | [facility] [place] | | | | | [address] | | + + + + + Care Team Providers + +------+ + | Care Rock Lather Name | Role | Phone | + [...] | [address] [place] | [place], [place] [address] | esophagitis presence | | | | [address] [place], [place] | [place], [place] | not specified; | | | | [address] | [address] | Dysphagia; Abdominal | | | | [phone] | | pain, left upper | | [...]
--- OUTSIDE RECORDS SUMMARY | ~2019-09-23 | XMS | Encounter Summary ---
Demographics + + + | Address | [address] | | | [place] [address] | + + + | Home Phone | | + + + | Preferred Language | Unknown | + + + | Marital Status | | + + + | Yazidi Affiliation | 1001 | + + + | Race | Unknown | + + + | Ethnic Group | Unknown | + + + Author + + + | Author | [facility] | | | and [place] | + + + | Organization | [facility] | | | and [...] Ave unit | | | | | [facility] [place] [place] | | | | | [address] | | + + + + + Care Team Providers + +------+ + | Care Auto Washer Name | Role | Phone | [...] + + | 02/25/ | Telephone | [facility] | Alfred Greenberg MD | Results (egd) | | 2016 | | GASTROENTEROLOGY | [address] | | | | | [address] [facility] | [place], [place] | | | | | [address] [place], [place] | [address] | | | | | [address] | [phone] | | | | | [phone] | | | +--------+ + + + [...]
--- OUTSIDE RECORDS SUMMARY | ~2019-09-23 | XMS | Encounter Summary ---
Demographics + + + | Address | [address] | | | [place] [address] | + + + | Home Phone | | + + + | Preferred Language | Unknown | + + + | Marital Status | | + + + | Yazdanism Affiliation | 1001 | + + + | Race | Unknown | + + + | Ethnic Group | Unknown | + + + Author + + + | Author | [facility] | | | and [place] | + + + | Organization | [facility] | | | and [place] | [...] [address] unit | | | | | [facility] [place] | | | | | [address] | | + + + + + Care Team Providers + +------+ + | Care Caustic Purification Operator Name | Role | Phone | [...] + + | 02/19/ | Telephone | [facility] | Alfred Greenberg MD | Results | | 2016 | | GASTROENTEROLOGY | [address] [facility] | | | | | [address] [facility] | [place], [place] | | | | | [address] [place] | [address] | | | | | [address] | [phone] | | | | | [phone] | | | +--------+ + + + [...]
--- OUTSIDE RECORDS SUMMARY | ~2019-09-23 | XMS | Encounter Summary ---
Demographics + + + | Address | [address] | | | [place] [address] | + + + | Home Phone | | + + + | Preferred Language | Unknown | + + + | Marital Status | | + + + | Temple Affiliation | 1001 | + + + | Race | Unknown | + + + | Ethnic Group | Unknown | + + + Author + + + | Author | [facility] | | | and [place] | + + + | Organization | [facility] | | | and [place] [...] [place], [place] | | | | | [address] | | + + + + + Care Team Providers + +------+ + | Care Java Enterprise Architect Name | Role | Phone | + [...] | | | | | | | [place] | | | | | | | [...] + + | 02/08/ | Hospital | [facility] | Alfred Greenberg MD | Abdominal pain, | | 2016 | Encounter | MED CTR MP INTRA OP | [address] | epigastric (Primary | | | | [address] | [place], [place] | Dx); Dysphagia, | | | | [place], [place] | [address] | unspecified; | | | | [address] | [phone] | Gastroesophageal | | | | [phone] | | reflux disease, | | | [...] the physician who did your procedure at [phone] if you have any questions or experience any of the following: ? Increasing abdominal pain, nausea, or vomiting. ? Chills and fever over 101F. ? New abdominal swelling or bloating. ? Signs of rectal bleeding (black or red stool). If you cannot get a hold of your physician, then call the [facility] [phone] . If necessary, report to the Emergency Department at [facility]. Quit smoking: If you smoke [...] | PROVATION | | 02/09/2016 9:08 AMN: [id number] #: [id number] of : | | | 1975Admit Type: AmbulatoryAge: 40Room: [facility] 02Gender: FemaleNote | | | Status: FinalizedAttending MD: Alfred Greenberg, [facility]rocedure: | | | Upper [...] | the physician, the nurse and the filter changing technician in the | | | pre-procedure [...] AMScope Out: 9:35:43 | | | AM [facility], [address] [facility] | | | [place] [address] | | | - Discharge patient to [...] |Scope Out: 9:35:43 AM | | | [facility], [address] [place], [place] | | | [address] | | + + -+ + +---------+ [...] | 1.010, 1.015, | | | | [place], | | 1.020, 1.025 | | | | POC | | | | | + + + + + + | Internal QC | Acceptable | | | | + + + + + + | Lot Number | [id number] | | | | + + + [...] is negative for | | | organisms. JVR:[facility] FINAL PATHOLOGIC DIAGNOSIS: A. Gastric | | [...] for increased | | | epithelial eosinophils. JVR:[facility]:C2NR GROSS DESCRIPTION: | | | Received in [...] | 0.25-0.3 cm, submitted, all into (C1). ka:JVR:[facility] ADDITIONAL | | | NOTES: Immunohistochemical studies were performed on this case with | | | the appropriate negative and positive controls that react as expected. | | | This test was developed and its performance characteristics | | | determined by [facility]. It has not been cleared or | | | approved by the U.S. Food and Drug Administration. The FDA has | | | determined that such clearance or approval is not necessary. This | | | test is used for clinical purposes. It should not be regarded as | | | investigational or for research. [facility] is certified | | | under the Clinical Laboratory Improvement Amendments of 1988 (CLIA) as | | | qualified to perform high complexity clinical laboratory testing. | | | PERFORMING LABORATORY: Tissue processing and slide preparation were | | | performed by [facility], [address] [place] [address], [facility] | | | [place] [address] (Lacing Presser: Girish Molina M.D. CLIA#: | | | [id number]). Professional interpretation was performed by [facility] | | | [facility], [facility], [facility] | | | [place] [address] (Lacing Presser: Girish Molina M.D.; | | | CLIA#: [id number]). Diagnostician: Girish Molina MD | | | [...]
[~2019-09-23 14:11] MED LIST changes: +ACETAMINOPHEN-1 EAC1 PO; +CRUTCH1 EACH MISC
[2019-09-23] MEDS ORDERED: LISINOPRIL40 MG PO (14:23)
[2019-09-23] MEDS ORDERED: ATENOLOL-CHLOR1 EAC1 PO (14:23)
[2019-09-23] MEDS ORDERED: FLUOXETINE HCL20 MG PO (14:24)
[2019-09-23] MEDS ORDERED: PRILOSEC OTC20 MG PO (15:12)
--- NOTE | 2019-09-23 20:16 | EKG ---
[facility] [address] [place], [place] [address] Signed Sinus bradycardia Otherwise normal ECG No previous ECGs available Confirmed by SARA NELSON DO ([id number]) on 09/23/2019 8:15:58 PM Electronically Signed By: SARA NELSON DO 09/23/19 2016 PATIENT NAME: FOXPOPPY TYLER Electrocardiogram DATE OF : 77 PHYSICIAN: SARA NELSON DO REPORT #: [id number] REPORT IS CONFIDENTIAL AND NOT TO BE RELEASED WITHOUT AUTHORIZATION
== END 2019-09-23 15:45 | disposition home or self-care (01) ==
LOC: ED 14:11
DX: K21.9 Gastro-esophageal reflux disease without esophagitis (principal); I10 Essential (primary) hypertension; F32.9 Major depressive disorder, single episode, unspecified; Z79.899 Other long term (current) drug therapy
CPT/HCPCS: 93005; 93010; 99284-25

== ENCOUNTER 2021-05-25 19:36 | Emergency (ER) | payer OTHER ==
[~2021-05-25] VITALS: Ht 170.2 cm; Wt 95.2 kg
[~2021-05-25 19:36] MED LIST changes: +ATENOLOL-CHLOR1 EAC1 PO; +FLUOXETINE HCL20 MG PO; +LISINOPRIL40 MG PO; +PRILOSEC OTC20 MG PO
--- NOTE | 2021-05-27 17:12 | EKG ---
[facility] [address] [place] [address] Signed Normal sinus rhythm Normal ECG When compared with ECG of 23-SEP-2019 14:15, Vent. rate has increased BY 40 BPM Confirmed by RAVI TIMMONS MD ([id number]) on 05/27/2021 5:12:31 PM Electronically Signed By: RAVI TIMMONS MD 05/27/21 1712 PATIENT NAME: POPPY GAYTAN Electrocardiogram DATE OF : [birth year] PHYSICIAN: RAVI TIMMONS MD REPORT #: [id number] REPORT IS CONFIDENTIAL AND NOT TO BE RELEASED WITHOUT AUTHORIZATION
== END 2021-05-26 02:00 | disposition home or self-care (01) ==
LOC: ED 19:36
DX: U07.1 COVID-19 (principal); I10 Essential (primary) hypertension; Z79.899 Other long term (current) drug therapy
CPT/HCPCS: 71045; 80053; 84484; 85025; 93005; 93010; 99284-25; C9803; U0003

== ENCOUNTER 2021-06-02 14:43 | Emergency (ER) | payer OTHER ==
[~2021-06-02] VITALS: Ht 170.2 cm; Wt 95.2 kg
--- OUTSIDE RECORDS SUMMARY | 2021-06-02 14:50 | XMS ---
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 Care Guidelines exist for the following facilities: [facility] ( 10/08/2019 ) [place] VISIT COUNT (12 MO.) 2 [facility] TOTAL 2 NOTE: Visits indicate total known visits. ED/UCC VISIT TRACKING (12 MO.) 06/02/2021 14:44 [facility] TYPE: Emergency COMPLAINT: - SOB, CHESTY PAIN, COVID + 05/25/2021 19:39 [facility] [place] TYPE: Emergency COMPLAINT: - FEVER, COUGH, FATIGUE, CONGESTION, NAUSEA DIAGNOSES: - Other penitentiary (current) drug therapy - Cough - Essential (primary) hypertension - COVID-19 INPATIENT VISIT TRACKING (12 MO.) No inpatient visits to display in this time frame [email or web address]
[2021-06-02] MEDS ORDERED: ONDANSETRON ODT4 MG PO (19:26)
== END 2021-06-02 19:58 | disposition home or self-care (01) ==
LOC: ED 14:43
DX: U07.1 COVID-19 (principal); J12.82 Pneumonia due to coronavirus disease 2019; I10 Essential (primary) hypertension; Z79.899 Other long term (current) drug therapy
CPT/HCPCS: 71045; 80053; 85025; 96374; 96375; 99284-25; J1885; J2405; J7030

== ENCOUNTER 2025-01-06 08:16 | Emergency (ER) | payer OTHER ==
[~2025-01-06] VITALS: Ht 170.2 cm; Wt 101.2 kg
[~2025-01-06 08:16] MED LIST changes: +ONDANSETRON ODT4 MG PO
[2025-01-06] MEDS ORDERED: NITROGLYCERIN 0.4 MG SUBL SL PRN (08:30)
[2025-01-06] MEDS ORDERED: ASPIRIN 81 MG CHEW PO ONE (08:30)
[2025-01-06 08:36] LABS: BASOPHILS 0.8 % (0-2); EOSINOPHILS 1.3 % (0-6); HEMOGLOBIN 13.3 g/dL (12.0-18.0); LYMPHOCYTES 26.3 % (24-44); MCH 32.8 (27-36); MCV 91.1 fl (81-99); NEUTROPHILS 65.6 % (39-80); PLATELET COUNT 323 K/uL (140-440); RBC 4.06 M/ul (4.3-5.7); RDW 14.4 (10.5-15.0)
[2025-01-06] MEDS ORDERED: LIDOCAINE & ANTACID 35 ML BTL PO ONE (08:45)
[2025-01-06 08:52] LABS: ALBUMIN 4.1 g/dL (3.4-5.0); ALBUMIN/GLOBULIN RATIO 1.11 (1.1-2.4); ANION GAP 14.1 (7-21); BILIRUBIN, TOTAL 0.4 mg/dL (0.2-1.0); BUN/CREATININE RATIO 22.85 (6.0-28.6); CALCIUM 9.2 mg/dL (8.5-10.1); CREATININE, SERUM 0.7 mg/dL (0.55-1.02); POTASSIUM 3.1 mmol/L (3.5-5.1); PROTEIN, TOTAL 7.8 g/dL (6.4-8.2)
[2025-01-06] MEDS ORDERED: OMEPRAZOLE20 MG PO (10:50)
[2025-01-06 11:00] VITALS: BP 113/68
--- NOTE | 2025-01-07 11:09 | EKG ---
[facility] [address] [facility] [place], [place] [address] Signed Normal sinus rhythm Normal ECG When compared with ECG of 03-SEP-2024 23:38, No significant change was found Confirmed by Bryanna Espinoza MD ([id number]) on 01/07/2025 11:09:04 AM Electronically Signed By: BRYANNA ESPINOZA MD 01/07/25 1109 PATIENT NAME: POPPY GAYTAN Electrocardiogram DATE OF : [birth year] PHYSICIAN: BRYANNA ESPINOZA MD REPORT #: [id number] REPORT IS CONFIDENTIAL AND NOT TO BE RELEASED WITHOUT AUTHORIZATION
== END 2025-01-06 11:00 | disposition home or self-care (01) ==
LOC: ED 08:16
PROVIDERS: Emergency Medicine
DX: K21.9 Gastro-esophageal reflux disease without esophagitis (principal); R07.89 Other chest pain; I10 Essential (primary) hypertension; R73.03 Prediabetes; Z87.11 Personal history of peptic ulcer disease; Z79.899 Other long term (current) drug therapy
CPT/HCPCS: 36415; 71045; 80053; 83690; 83735; 84484; 85025; 93005; 93010; 99285-25

== ENCOUNTER 2025-05-03 18:32 | Emergency (ER) | payer OTHER ==
[~2025-05-03] VITALS: Ht 170.2 cm; Wt 116.0 kg
[~2025-05-03 18:32] MED LIST changes: +OMEPRAZOLE20 MG PO
[2025-05-03] MEDS ORDERED: FLUOXETINE HCL20 MG PO (19:06)
[2025-05-03 19:31] LABS: CORONAVIRUS COVID-19 AG NEGATIVE (NEGATIVE)
[2025-05-03] MEDS ORDERED: KETOROLAC TROMETHAMINE 30 MG/ML VIAL IV ONE (19:45)
[2025-05-03] MEDS ORDERED: LACTATED RINGER'S 1,000 ML IV ONE (19:45)
[2025-05-03 20:02] LABS: BASOPHILS 0.4 % (0.1-1.2); EOSINOPHILS 2.1 % (0.7-5.8); LYMPHOCYTES 26.9 % (19.3-51.7); MCH 31.4 PG (25.6-32.2); MCHC 34.6 g/dL (32.2-35.5); MCV 90.6 fL (79.4-94.8); MONOCYTES 7.9 % (4.7-12.5); NEUTROPHILS 62.4 % (34.0-71.1); RBC 3.92 M/uL (3.93-5.22)
[2025-05-03 20:18] LABS: ALT (SGPT) 89.0 U/L (14-59); AST (SGOT) 42.0 U/L (15-37); GLOMERULAR FILTRATION RATE,EST 101.0 mL/min (>60); PROTEIN, TOTAL 7.0 g/dL (6.4-8.2); UREA NITROGEN 15.0 mg/dL (7-18)
[2025-05-03] MEDS ORDERED: POTASSIUM CHLORIDE 10 MEQ TABCR PO ONE (21:15)
[2025-05-03 21:30] LABS: BLOOD/HGB, URINE NEGATIVE (Negative); KETONE, URINE NEGATIVE (Negative); LEUK ESTERASE, URINE TRACE (negative); NITRITE, URINE NEGATIVE (negative)
[2025-05-03 21:36] LABS: BACTERIA, URINE 1+ /hpf (negative); CRYSTALS, URINE AMORPHOUS PHOSPH 2+ (0-1+); EPITHELIAL CELLS, URINE SQUAMOUS 2+ /lpf (0-1+)
[2025-05-03 21:37] LABS: CASTS, URINE GRANULAR 1+ \\lpf; REFLEX CULTURE, URINE No (No)
[2025-05-03] MEDS ORDERED: ONDANSETRON ODT8 MG PO (21:43)
[2025-05-03] MEDS ORDERED: LOMOTIL TABLET1 EACH PO (21:43)
[2025-05-03] MEDS ORDERED: CYCLOBENZAPRINE10 MG PO (21:43)
[2025-05-03] MEDS ORDERED: CYCLOBENZAPRINE HCL 10 MG HOME.PACK PO ONE (21:45)
[2025-05-03] MEDS ORDERED: ONDANSETRON 4 MG HOME.PACK SL ONE (21:45)
[2025-05-03 22:10] VITALS: BP 141/71
== END 2025-05-03 22:10 | disposition home or self-care (01) ==
LOC: ED 18:32
PROVIDERS: Emergency Medicine; Family Medicine
DX: K52.9 Noninfective gastroenteritis and colitis, unspecified (principal); I10 Essential (primary) hypertension; Z79.899 Other long term (current) drug therapy
CPT/HCPCS: 36415; 80053; 81001; 83735; 85025; 96374; 96375; 99284-25; A9270; J1885; J2405; J7121

== ENCOUNTER 2025-06-23 21:01 | Emergency (ER) | payer OTHER ==
[~2025-06-23] VITALS: Ht 170.2 cm; Wt 116.0 kg
[~2025-06-23 21:01] MED LIST changes: +LOMOTIL TABLET1 EACH PO; +ONDANSETRON ODT8 MG PO
[2025-06-23 22:45] VITALS: BP 158/87
== END 2025-06-23 22:46 | disposition home or self-care (01) ==
LOC: ED 21:01
DX: S93.401A Sprain of unspecified ligament of right ankle, initial encounter (principal); I10 Essential (primary) hypertension; R73.03 Prediabetes; Z79.899 Other long term (current) drug therapy; W19.XXXA Unspecified fall, initial encounter
CPT/HCPCS: 73610; 99283